=== PATIENT | male | born 1960 | race Caucasian/White ===

== ENCOUNTER 2016-05-02 11:13 | Day surgery (SDC) | payer MEDICAID ==
[~2016-05-02] VITALS: Ht 193 cm; Wt 74.4 kg
[~2016-05-02 11:13] MED LIST: BUPROPION HYDR100 M2 PO; HYDROCODONE1 TABLET PO; KEFLEX 500MG.500 MG PO; SPIRIVA HA1 PUFF/INH IH; SYMBICORT1 AER IH
[2016-05-02 11:35] VITALS: BP 169/78
--- OUTSIDE RECORDS SUMMARY | 2016-05-02 11:44 | External Medical Summary Rpt ---
Author Author , Organization [employer] Address Unknown Phone Unavailable Care Team Providers Care Senior Construction Project Manager Name Role Phone ABSNER CHANDAN, ABSRICH Unavailable Unavailable CHANDAN CONWAY, Unavailable Unavailable MIGUEL FARIAS MD, PSC, Unavailable Unavailable IVELISSE FARIAS MD, PSC BEINEKE ZHEN, BEINEKE Unavailable Unavailable ZHEN ARITA ALL, ARITA ALL Unavailable Unavailable BUX ANJ, BUX ANJ Unavailable Unavailable DUFF, DUFF Unavailable Unavailable DUFF JUAN DAVID, DUFF JUAN DAVID Unavailable Unavailable [facility] Unavailable Unavailable INC, [facility] SWEET BERTO, SWEET BERTO Unavailable Unavailable SWEET BERTO, SWEET BERTO Unavailable Unavailable [facility], Unavailable Unavailable [facility] SORIANO TRA, SORIANO TRA Unavailable Unavailable SORIANO TRA, SORIANO TRA Unavailable Unavailable [facility] Unavailable Unavailable [facility], [facility] Un[facility], [facility] Unavailable Unavailable [facility], [facility] Unavailable Unavailable [facility], [facility] DON FARIAS MD, DON Unavailable Unavailable JARRETT ROY MASKEY ALISSA, MASKEY Unavailable Unavailable ALISSA FOX, FOX Unavailable Unavailable FOX JAM, Unavailable Unavailable FOX JAM JOCELINE, JOCELINE Unavailable Unavailable [facility]EL[facility] R [facility], Unavailable Unavailable [facility] PICKLESIMER JR TYLER, Unavailable Unavailable PICKSUSANIMER TYLER PURDOM MAT, PURDOM Unavailable Unavailable MAT SCHULSTAD CAM, Unavailable Unavailable SCHULSTAD CAM KORTNEY MAT, Unavailable Unavailable KORTNEY MAT STRAIN JUAN DAVID, STRAIN Unavailable Unavailable JUAN DAVID [facility] Unavailable Unavailable HOSPITALS, [facility], Unavailable Unavailable [facility] Un[facility] ZAGUROVSKAYA MAR, Unavailable Unavailable ZAGUROVSKAYA MAR Purpose Continuity of Care Document - 07-03-2013 through 2016 Problems Code Diagnosis DOS Provider Status [id number] SPINAL 03-20-2016 [facility]IS [facility] LUMBAR INC REGION B391 CHRONIC 02-22-2016 [facility] PULMONARY [facility] HISTOPLASMO INC SIS CAPSULATI Z5181 ENCOUNTER 02-22-2016 [facility] FOR [facility] THERAPEUTIC INC DRUG LEVEL MONITORING L821 OTHER 02-18-2016 [facility] KERATOSIS [id number] SPONDYLOSIS 02-01-2016 IVELISSE FARIAS, W/O , PSC MYELOPATH/R ADICULOPATH Y LUMB RGN 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 FARIAS RAL DISC , PSC D/O W/RADICULOP ATHY LUMB RGN M5416 RADICULOPAT 02-01-2016 [facility] HY LUMBAR [facility] REGION INC B392 PULMONARY 01-24-2016 [facility] CAPSULATI UNSPECIFIED J441 CHRONIC 01-24-2016 [facility] P[facility]ARY [facility] DZ W/EXACERBAT ION R600 LOCALIZED 01-03-2016 [facility] EDEMA [facility] INC M5136 OTH 12-28-2015 [facility] INTERVERTEB [facility] RAL DISC INC DEGEN LUMBAR REGION [id number] OTHER LONG 12-17-2015 [facility] CURRENT [facility] DRUG THERAPY G894 CHRONIC 12-14-2015 [facility] SYNDROME J431 PANLOBULAR 12-14-2015 [facility]MPHYSEMA [facility] M545 LOW BACK 12-14-2015 [facility] Z720 TOBACCO USE 12-14-2015 [facility] M5406 PANNICULITI 11-30-2015 [facility] S AFFCT [facility] REGIONS NCK INC BACK LUMB REGION J189 PNEUMONIA 11-23-2015 [facility] J984 OTHER 11-23-2015 [facility] LUNG HOSPI R918 OTHER 11-23-2015 [facility] NONSPECIFIC [facility] ABNORMAL HOSPI FINDING OF LUNG FIELD Z942 LUNG 11-23-2015 [facility] TRANS[facility] STATUS [facility] R911 SOLITARY 10-21-2015 [facility] PULMONARY [facility] NODULE INC G8929 OTHER 10-06-2015 [facility] CHRON[facility] PAIN [facility] J439 EMPHYSEMA 10-06-2015 [facility] UNSPECIFIED SERV [facility] M549 DORSALGIA 10-06-2015 [facility]PEC[facility] M59054 OTHER SPEC 07-06-2015 [facility] NEOPLASM SKIN OTHER PART TRUNK D485 NEOPLASM OF 06-24-2015 [facility] UN[facility]ERTAIN PHYSICIANS BEHAVIOR OF GROUP SKIN Z7689 PERSONS 05-21-2015 [facility] ENCOUNTER [facility] navabi [facility] HOLDINGS OT CIRCUMSTANC ES I208 OTHER FORMS 03-30-2015 [facility] OF ANGINA [facility] PECTORIS INC I209 ANGINA 03-30-2015 [facility] PECTORIS PHYSICIANS UNSPECIFIED GROUP J449 CHRONIC 03-30-2015 [facility] OBSTRUCTIVE [facility] PULMONARY INC DISEASE UNS R079 CHEST PAIN 03-30-2015 [facility] UNSPECIFIED [facility] INC R9431 ABNORMAL 03-30-2015 [facility] ELECTROCARD [facility] IOGRAM INC R9439 ABNORMAL 03-30-2015 [facility] RESULT OT PHYSICIANS CARDIOVASCU GROUP LR FUNCTION STUDY R0602 SHORTNESS 03-22-2015 [facility] OF BREATH [facility] INC R0600 DYSPNEA 02-23-2015 [facility] UNSPECIFIED [facility] INC J209 ACUTE 02-20-2015 [facility]CHITIS [facility] UNSPECIFIED Z8249 FAMILY HX 02-20-2015 [facility] ISCHEMIC [facility] HRT DZ OTH DZ CIRC SYSTEM E69262G STRAIN 12-11-2014 [facility] MUSCLE [facility] FASCIA & TENDON LOW BACK INITIAL 13804 OTHER 10-29-2014 [facility] PNEUMOTHORA [facility] X [facility] 486 PNEUMONIA, 10-28-[address] [facility] UNSPECIFIED 5121 IATROGENIC 10-28-2014 [facility] X 5130 ABSCESS OF 10-28-2014 [facility] LUNG [facility] HOSPI 515 POSTINFLAMM 10-28-2014 [facility] ATORY [facility] PULMONARY HOSPI FIBROSIS 03064 OTHER 10-28-2014 [facility] DISEASES [facility] LUNG NOT HOSPI ELSEWHERE CLASSIFIED 41440 OTHER 10-28-2014 [facility] NONSPECIFIC SERV ABNORMAL [facility]OUND[facility] FINDING OF LUNG FIELD V1083 PERSONAL 10-28-2014 [facility] OTHER MALIGNANT NEOPLASM SKIN V5882 ENCOUNTER 10-28-2014 [facility]J [facility] NON-VASCULA R CATHETER NEC 496 CHRONIC 10-27-2014 [facility]AY [facility] OBSTRUCTION NEC 7226 DEGENERATIO 10-27-2014 [facility] N [facility] INTERVERTEB RAL DISC SITE UNSPEC 59369 ENTHESOPATH 10-27-2014 [facility] Y OF [facility] UNSPECIFIED SITE 7866 SWELLING, 10-27-2014 [facility] M[facility], OR [facility] LUMP IN CHEST 4928 OTHER 09-25-2014 [facility] EMPHYSEMA [facility] 18995 LOSS OF 09-25-2014 [facility] 98190 SOLITARY 09-25-2014 [facility] P[facility]MON[facility] NODULE [facility] 25120 OBSTRUCTIVE 09-14-2014 [facility] CHRONIC [facility] BRONCHITIS INC WITHOUT EXACERBAT 92247 SHORTNESS 08-31-2014 [facility] 7932 NONSPC ABN 08-31-2014 [facility] FINDNG [facility] RAD&OTH INC EXAM OTH INTRTHOR ORGN 7208 SACROILIITI 06-01-2014 DON FARIAS S NOT MD ELSEWHERE CLASSIFIED 79767 DEGEN 06-01-2014 DON FARIAS LUMBAR/LUMB OSACRAL INTERVERTEB RAL DISC 7244 THORACIC/FAVIOLA 06-01-2014 DON JONESOSACRKATE ROY NEURITIS/RA DICULITIS UNSPEC 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 5- 32 5 SY 00 02 03 10 30 00 RI Ac MB 18 -0 -0 .1 00 TE ti IC 60 3- 3- 99 01 ve OR 37 20 20 15 AI T 02 17 17 18 D 16 0 08 PH 0- AR 4. M 5 #3 MC 93 G 8 IN PATEL LE R SP 00 02 03 30 30 00 RI Ac IR 59 -0 -0 .0 00 TE ti IV 70 3- 3- 00 01 ve A 07 20 20 13 AI 18 54 17 17 92 D 1 44 PH MC AR G M CP #3 -H 93 AN 8 DI PATEL LE R IT 00 02 02 60 30 00 RI Ac RA 37 -0 -2 .0 00 TE ti CO 85 1- 4- 00 01 ve NA 10 20 20 16 AI ZO 09 17 17 93 D LE 3 28 PH AR 10 M 0 #3 MG 93 8 CA PS UL E BU 00 02 02 60 30 00 RI Ac FL 18 -0 -2 .0 00 TE ti OP 50 1- 4- 00 01 ve IO 41 20 20 16 AI N 56 17 17 93 D HC 0 29 PH L AR SR M #3 15 93 0 8 MG TA BL ET SY 00 01 02 10 30 00 RI Ac MB 18 -0 -1 .1 00 TE ti IC 60 2- 7- 99 01 ve OR 37 20 20 15 AI T 02 17 17 18 D 16 0 08 PH 0- AR 4. M 5 #3 MC 93 G 8 IN PATEL LE R IT 00 01 01 60 30 00 RI Ac RA 37 -0 -2 .0 00 TE ti CO 85 2- 7- 00 01 ve NA 10 20 20 16 AI ZO 09 17 17 51 D LE 3 50 PH AR 10 M 0 #3 MG 93 8 CA PS UL E SP 00 01 01 30 30 00 RI Ac IR 59 -0 -2 .0 00 TE ti IV 70 2- 7- 00 01 ve A 07 20 20 13 AI 18 54 17 17 92 D 1 44 PH MC AR G M CP #3 -H 93 AN 8 DI PATEL LE R HY 00 01 01 [address] 40 -0 -2 .0 00 TE ti OC 60 2- 7- 00 01 ve OD 12 20 20 16 AI ON 40 17 17 49 D -A 1 21 PH CE AR TA M VT #3 NO 93 PH 8 7. 5- 32 5 ME 00 12 01 21 6 00 RI Ac TH 78 -1 -1 .0 00 TE ti YL 15 2- 3- 00 01 ve FL 02 20 20 16 AI ED 20 16 17 21 D NI 7 21 PH SO AR LO M NE #3 4 93 8 MG DO SE PK VE 00 12 01 18 25 00 RI Ac NT 17 -0 -0 .0 00 TE ti OL 30 1- 9- 00 01 ve IN 68 20 20 16 AI 22 16 17 05 D HF 0 13 PH A AR 90 M #3 MC 93 G 8 IN PATEL LE R HY 00 12 01 [address] 40 -0 -0 .0 00 TE ti OC 60 2- 9- 00 01 ve OD 12 20 20 16 AI ON 40 16 17 08 D -A 1 08 PH CE AR TA M VT #3 NO 93 PH 8 7. 5- 32 5 IP 00 12 01 18 14 00 RI Ac RA 48 -0 -0 0. 00 TE ti T- 70 2- 9- 00 01 ve AL 20 20 20 0 11 AI BU 10 16 17 44 D T 3 51 PH 0. AR 5- M 3( #3 2. 93 5) 8 MG /3 ML SP 00 12 01 30 30 00 RI Ac IR 59 -0 -0 .0 00 TE ti IV 70 2 01 ve A 07 20 20 13 AI 18 54 16 17 92 D 1 44 PH MC AR G M CP #3 -H 93 AN 8 DI PATEL LE R SY 00 12 01 10 30 00 RI Ac MB 18 -0 -0 .1 00 TE ti IC 60 01 ve OR 37 20 20 15 AI T 02 16 17 18 D 16 0 08 PH 0- AR 4. M 5 #3 MC 93 G 8 IN PATEL LE R Procedures Procedure DOS Code Location Performer Comment COMPREHEN 71077 [facility] SIVE [facility] METABOLIC INC INC PANEL COLLECTIO 11512 [facility] N VENOUS 7 [facility] BLOOD INC INC VENIPUNCT URE [facility] 71193 FAMILY JOCELINE LESION 1 7 CARE TRUNK/ARM ASSOCIATE /LEG DIAM S 1.1-2.0 CM NJX 22490 [facility] DX/THER 6 [facility] AGT PVRT INC INC FACET JT LMBR/SAC 2ND LEVEL NJX 17474 [facility] DX/THER 6 [facility] AGT PVRT INC INC FACET JT LMBR/SAC 1 LEVEL NJX 26132 [facility] DX/THER 6 [facility] AGT PVRT INC INC FACET JT LMBR/SAC 3+ LEVEL COMPREHEN 24628 [facility] SIVE 6 [facility] METABOLIC INC INC PANEL COLLECTIO 13628 [facility] N VENOUS 6 [facility] BLOOD INC INC VENIPUNCT URE BLOOD 79677 [facility] COUNT 6 [facility] COMPLETE INC INC AUTO&AUTO DIFRNTL WBC BLOOD 22228 [facility] VALENTEON COUNT 6 [facility] COMPLETE INC INC AUTO&AUTO DIFRNTL WBC COMPREHEN 37733 [facility] SIVE 6 [facility] METABOLIC INC INC PANEL COLLECTIO 36249 [facility] N VENOUS 6 [facility] BLOOD INC INC VENIPUNCT URE NJX 36737 [facility] DX/THER 6 [facility] AGT PVRT INC INC FACET JT LMBR/SAC 3+ LEVEL NJX 87863 [facility] DX/THER 6 [facility] AGT PVRT INC INC FACET JT LMBR/SAC 2ND LEVEL NJX 65299 [facility] VALENTEON DX/THER 6 [facility] AGT PVRT INC INC FACET JT LMBR/SAC 1 LEVEL BRONCHOSC 83215 RHIANNA MASKEY OPY 6 MEDICAL ALISSA W/TRANSBR SERV ONCHIAL FOUNDATIO LUNG BX 1 N LOBE INJECTION J3010 [facility] FENTANYL 6 HEALTHCAR HEALTHCAR CITRATE E E 0.1 MG [facility] INFUSION J7030 [facility] NORMAL 6 [facility]ALTHCAR HEALTHCAR SALINE E E SOLUTION [facility] 1000 CC CUL BACT 54203 [place] AEROBIC 6 [facility]ALTHCAR HEALTHCAR ADDL E E METHS [facility] [place] [address] [facility] SLIDE 6 HEALTHCAR HEALTHCAR SAMPS E E SKN/HR/NL [facility] S FNGI/ECTO PARASIT SMR PRIM 88001 [facility] SRC 6 HEALTH[facility] HEALTHCAR FLUORESCE E E NT&/AFS [facility] BCT FNGI PARASIT CUL BACT 98279 [facility] XCPT 6 HEALTHCAR HEALTHCAR URINE E E BLOOD/STO [facility] OL AEROBIC ISOL CULTURE 59985 [facility] TUBERCLE/ 6 HEALTHCAR HEALTHCAR OTH E E ACID-FAST [facility] BACILLI ANY ISOL INJECTION J2250 [facility] 6 HEALTHCAR HEALTHCAR MIDAZOLAM E E HCL PER [facility] 1 MG HOMOGENIZ 72931 [facility] ATION 6 HEALTHCAR HEALTHCAR TISSUE E E CULTURE [facility] CULTURE 12746 [facility] FUNGI 6 HEALTHCAR HEALTHCAR DEFINITIV E E E ID EACH [facility] ORGANISM YEAST CONCENTRA 37504 [facility] TION 6 HEALTHCAR HEALTHCAR INFECTIOU E E S AGENTS [facility] SPECIAL 77203 [facility] PURDOM STAIN 6 Y OF MAT GROUP 1 [facility] NISMS I&R CYTP 91159 [facility] ABSNER SLCTV 6 Y OF CHANDAN CELL [facility] NT INTERP[place] XCP[place] C/[place] [address] [facility] PURDOM SURG 6 Y OF MAT PATHOLOGY [facility] GROSS&LESLIE ROSCOPIC EXAM SUSCEPTIB 82292 [facility] ILITY 6 HEALTHCAR HEALTHCAR STUDY E E ANTIMICRO [facility] BIAL ENZYME DETCJ IADNA NOS 27474 [facility] DIRECT 6 HEALTHCAR HEALTHCAR PROBE TQ E E EACH [facility] ORGANISM SUSCEPTBI 57669 [facility] LTY STDY 6 HEALTHCAR HEALTHCAR ANTIMICRB E E IAL AGNT [facility] AGAR DILUTJ CULTURE 02746 [facility] FNGI 6 HEALTHCAR HEALTHCAR MOLD/YEAS E E T PRSMPTV [facility] OTH XCPT BLOOD [facility] [address] [place] W/BRNCL 6 MEDICAL MEDICAL ALVEOLAR SERV SERV LAVAGE FOUNDATIO FOUNDATIO N N APPL 46342 [facility] MODALITY 6 [facility] 1/> AREAS INC INC ELEC STIMJ UNATTENDE D APPLICATI 80785 [facility] ON 6 [facility]OS[facility] MODALITY INC INC 1/> AREAS HOT/COLD PACKS APPL 11544 [facility] MODALITY 6 [facility] 1/> AREAS INC INC ULTRASOUN D EA [address] THORAX 46168 [facility]ITA ALL W/O 6 MEDICAL CONTRAST IMAGING MATERIAL ASS APPL 44112 [facility] MODALITY 6 [facility] 1/> AREAS INC INC ULTRASOUN D EA 15 MIN APPLICATI 96537 [facility] ON 6 [facility]OS[facility] MODALITY INC INC 1/> AREAS HOT/COLD PACKS APPL 82314 [facility] MODALITY 6 [facility] 1/> AREAS INC INC ELEC STIMJ UNATTENDE D APPL 47108 [facility] MODALITY 6 MEM H[facility]OSP 1/> AREAS INC INC ELEC STIMJ UNATTENDE D APPLICATI 92688 [facility] ON 6 [facility]OS[facility] MODALITY INC INC 1/> AREAS HOT/COLD PACKS APPL 70506 [facility] MODALITY 6 [facility] 1/> AREAS INC INC ULTRASOUN D EA 15 MIN APPLICATI 11260 [facility] ON 6 [facility]OS[facility] MODALITY INC INC 1/> AREAS HOT/COLD PACKS APPL 19849 [facility] MODALITY 6 [facility] 1/> AREAS INC INC ELEC STIMJ UNATTENDE D THERAPEUT 94712 [facility] IC PX 1/> 6 [facility]OS[facility] AREAS INC INC EACH 15 MIN EXERCISES APPL 58050 [facility] MODALITY 6 [facility] 1/> AREAS INC INC ULTRASOUN D EA 15 MIN APPL 46506 [facility] MODALITY 6 [facility] 1/> AREAS INC INC ULTRASOUN D EA 15 MIN APPL 04707 [facility] MODALITY 6 [facility]OS[facility] 1/> AREAS INC INC ELEC STIMJ UNATTENDE D APPLICATI 39178 [facility] ON 6 [facility]OS[facility] MODALITY INC INC 1/> AREAS HOT/COLD PACKS APPLICATI 15910 [facility] ON 6 [facility]OS[facility] MODALITY INC INC 1/> AREAS HOT/COLD PACKS APPL 81539 [facility] MODALITY 6 [facility] 1/> AREAS INC INC ELEC STIMJ UNATTENDE D APPL 75340 [facility] MODALITY 6 [facility] 1/> AREAS INC INC ULTRASOUN D EA 15 MIN APPL 70929 [facility] MODALITY 6 [facility] 1/> AREAS INC INC ULTRASOUN D EA 15 MIN APPL 97351 [facility] MODALITY 6 [facility] 1/> AREAS INC INC ELEC STIMJ UNATTENDE D APPLICATI 73686 [facility] ON 6 [facility] MODALITY INC INC 1/> AREAS HOT/COLD PACKS APPLICATI 89147 [facility] ON 6 [facility]OS[facility] MODALITY INC INC 1/> AREAS HOT/COLD PACKS APPL 36469 [facility] MODALITY 6 [facility] 1/> AREAS INC INC ELEC STIMJ UNATTENDE D APPL 44392 [facility] MODALITY 6 [facility] 1/> AREAS INC INC ULTRASOUN D EA 15 MIN THERAPEUT 79133 [facility] IC PX 1/> 6 [facility] AREAS INC INC EACH 15 MIN EXERCISES PHYSICAL 27752 [facility] THERAPY 6 [facility] [place] [address] [facility], PICKLESIM SURG 6 [facility] PATHOLOGY GROSS&LESLIE ROSCOPIC EXAM CREATININ 66570 LAB [facility] LAB RASHIDA E OTHER 6 [facility] HOLDINGS HOLDINGS DRUG TST G0483 LAB [facility] DEFINITV [address] ID HOLDINGS HOLDINGS METH P DAY 22/MORE DR CL CATHETER C1887 [facility] GUIDING 6 [facility] INC INC INJECTION J1644 [facility] HEPARIN 6 [facility] SODIUM INC INC PER 1000 UNITS CATH PLMT 62860 [facility] KORTNEY L HRT & 6 PHYSICIAN MAT ARTS S GROUP W/NJX & ANGIO IMG S&I LOCM Q9967 [facility] 300-399 6 [facility] MG/ML INC INC IODINE CONCENTRA TION PER ML GUIDE C1769 [facility] WIRE 6 [facility] INC INC CATHETER C1725 [facility] TRANSLUMI 6 [facility] NAL INC INC ANGIOPLAS TY NON-LASER UNCLASSIF J3490 [facility] IED DRUGS 6 [facility] H[facility] INC INC NON-INVAS 88001 [facility] ALL FARIDA 6 MEDICAL PHYSIOLOG IMAGING IC STUDY ASS EXTREMITY 3 LEVLS TECHNETIU A9500 [facility] Kothari TC-99M 6 [facility] H[facility] SESTAMIBI INC INC DX PER STUDY DOSE CV STRS 00804 [facility] TST 6 [facility] XERS&/OR INC INC RX CONT ECG TRCG ONLY INJECTION J2785 [facility] 6 [facility]OS[facility] REGADENOS INC INC ON 0.1 MG MYOCARDIA 94424 [facility] L SPECT 6 [facility] MULTIPLE INC INC STUDIES ECHO 38771 RHIANNA RIVERA TRANSTHOR 6 MEDICAL MARTINEZ MAN C R-T 2D SERV W/WO FOUNDATIO M-MODE N REC F-UP/LMTD ECHO 68323 [facility] TTHRC R-T 6 [facility]OS[facility] 2D INC INC W/WOM-MOD E COMPL SPEC&COLR D ECG 45460 [facility] ROUTINE 6 [facility] ECG INC INC W/LEAST 12 LDS TRCG ONLY W/O I&R ECG 44633 CARDIOVAS KORTNEY ROUTINE 6 CULAR MAT ECG CONSULTAN W/LEAST TS O 12 LDS I&R ONLY BLOOD 01041 FAMILY FAMILY COUNT 6 CARE CARE COMPLETE ASSOCIATE ASSOCIATE AUTO&AUTO S S DIFRNTL WBC CT THORAX 80332 [facility] W/O 5 [facility] CONTRAST INC INC MATERIAL COLLECTIO 01315 [facility] N VENOUS 5 [facility] BLOOD INC INC VENIPUNCT URE RADIOLOGI 29070 [facility] C 5 [facility] ON CHEST SING[place] FRONTAL RADIOLOGI 52431 RHIANNA SHAW C 5 MEDICAL AYA MAR EXAMINATI SERV ON CHEST FOUNDATIO SINGLE N VIEW FRONTAL INJECTION J1170 [facility] UNIVERS 5 Y Y HYDROMORP [facility] YANCI UP TO 4 MG CULTURE 16955 [facility] FNGI 5 Y Y MOLD/YEAS [facility] T PRSMPTV OTH XCPT BLOOD PROTHROMB 46704 [facility] UNIVERS IN TIME 5 Y Y HOSPITAL HOSPITAL INFUSION J7030 [facility] NORMAL 5 Y Y SALINE [facility] SOLUTION 1000 CC INJECTION J3010 [facility] FENTANYL 5 Y Y CITRATE [facility] 0.1 MG TISS SAM 17791 [facility] SLIDE 5 Y Y [facility] SKN/HR/NL S FNGI/ECTO PARASIT SMR PRIM 73875 [facility] SRC 5 Y Y [facility]OSPITAL NT&/AFS BCT FNGI PARASIT CUL BACT 25295 [facility] XCPT 5 Y Y URINE HOSPITAL HOSPITAL BLOOD/STO OL AEROBIC ISOL CULTURE 92336 [facility] BACTERIAL 5 Y Y ANY HOSPITAL HOSPITAL SOURCE ANAEROBIC ISO&ID CULTURE 58943 [facility] TUBERCLE/ 5 Y Y OTH HOSPITAL HOSPITAL ACID-FAST BACILLI ANY ISOL THROMBOPL 20725 [facility] ASTIN 5 Y Y TIME HOSPITAL HOSPITAL PARTIAL PLASMA/WH OLE BLOOD BASIC 01756 [facility] METABOLIC 5 Y Y PANEL HOSPITAL HOSPITAL CALCIUM TOTAL GUIDE C1769 [facility] WIRE 5 Y Y HOSPITAL HOSPITAL INJECTION J2250 [facility] 5 Y Y [facility] HCL PER 1 MG BIOPSY 18504 [facility] LUNG/MEDI 5 Y Y ASTINUM [facility] PERCUTANE OUS NEEDLE HOMOGENIZ 69285 [facility] ATION 5 Y Y TISSUE HOSPITAL HOSPITAL CULTURE SMR PRIM 89216 [facility] SRC 5 Y Y GRAM/GIEM HOSPITAL HOSPITAL SA STAIN BCT FUNGI/JEFF L BLOOD 05255 [facility] COUNT 5 Y Y COMPLETE HOSPITAL HOSPITAL AUTOMATED CATHETER C1729 [facility] DRAINAGE 5 Y Y HOSPITAL HOSPITAL RADIOLOGI 93947 [place] AMEROVIVIK C 5 MEDICAL AYA MAR EXAMINATI SERV ON [place] [address] [facility] GUIDANCE 5 Y Y NEEDLE HOSPITAL HOSPITAL PLACEMENT SPCL STN 46504 [facility] 2 I&R 5 Y Y EXCPT [facility] MICROORG/ ENZYME/IM CYT SPECIAL 56616 [facility] STAIN 5 Y Y GROUP 1 HOSPITAL HOSPITAL MICROORGA NISMS I&R PATH 84569 [facility] [place] 5 Y Y SURG [facility]OSPITAL [facility] CYTOLOGIC EXAM INITIAL SITE PATH 82364 [facility] [place] 5 Y Y SURG [facility] CYTOLOGIC EXAM ADDL SITE PERQ 45165 [place] STRAIN DRAINAGE 5 MEDICAL JUAN [facility] SERV INSERT FOUNDATIO CATH N [place] [address] [facility] SURG 5 Y Y PATHOLOGY [facility] GROSS&LESLIE ROSCOPIC EXAM IMHISTOCH 16915 [facility] EM/CYTCHM [address] [place] [address] [place]ED[place] [address] [facility] IMAGING 5 Y Y [facility] ATTENUATI ON SKULL BASE MID-THIGH FLUORODEO A9552 [facility] XYGLUCOSE 5 Y Y F-18 FDG [facility] DX UP [place] [address] [place] [address] [facility] THYROID 5 [facility] STIMULATI INC INC NG HORMONE TSH COMPREHEN 67816 [facility] SIVE 5 [facility] METABOLIC INC INC PANEL COLLECTIO 87645 [facility] N VENOUS 5 [facility] BLOOD INC INC VENIPUNCT URE BRNCDILAT 96217 [facility] RSPSE 5 [facility] SPMTRY INC INC PRE&POST- BRNCDILAT ADMN BLOOD 41120 [facility] COUNT 5 [facility] COMPLETE INC INC AUTO&AUTO DIFRNTL WBC ALPHA-1-A 57274 [facility] NTITRYPSI 5 [facility] N INC INC PHENOTYPE NONINVASI 87315 [facility] VE 5 [facility] EAR/PULSE INC [place] [address] [facility] DIFFUSING 5 [facility] CAPACITY INC INC GAS 92033 [facility] DILUT/WAS 5 [facility] HOUT LUNG INC INC VOL W/WO DISTRIB VENT&V LOCM Q9967 [facility] [phone] [facility] MG/ML INC INC IODINE CONCENTRA TION PER ML CT THORAX 15014 [facility] BEINEKE 5 MEDICAL ZHEN W/CONTRAS IMAGING T ASS MATERIAL CREATININ 10386 [facility] E BLOOD 5 [place] [address] [facility] UREA 5 [facility] NITROGEN INC INC QUANTITAT FARIDA COLLECTIO 72875 [facility] N VENOUS 5 [facility] BLOOD INC INC VENIPUNCT URE [facility] 16429 [place] ARITA ALL C EXAM 5 MEDICAL CHEST 2 IMAGING VIEWS [place] FR[place] [address] MADAR BUX BUX ANJ JOINT 5 ARTHRGRPH Y&/ANES/S TEROID W/ANUJ OPH 79463 [facility]A [facility] 4 XM&EVAL COMPRE NEW PT 1/> VST Encounters Encounter Start End Date Code Location Performer Type Date [facility] 7 [facility] T OFFICE [id number] [facility] OUTPAT[facility]AIR 7 7 [facility] T [facility]ISIT INC 10 MINUTES [facility] - 7 7 [facility] OUTPATIEN INC [facility] - 6 6 [facility] T OFFICE 77860 [facility] OUTPATIEN 6 6 [facility] T VISIT INC 10 MINUTES OFFICE 07858 IVELISSE AMADO OUTPATIEN 6 6 MD JARRETT, T VISIT PSC 15 MINUTES OFFICE 02943 RHIANNA LEBLANCPATIJAIR 6 6 MEDICAL T VISIT SERV 25 FOUNDATIO MINUTES [facility] - 6 6 [facility] - 6 6 [facility] - 6 6 [facility]IEN INC T OFFICE 67013 IVELISSE AMADO OUTPATIEN 6 6 MD JARRETT, T VISIT PSC 15 MINUTES OFFICE 62612 [facility] GAN 6 6 [facility] INC 10 MINUTES OFFICE 68985 RHIANNA GAN 6 6 MEDICAL JAM T VISIT SERV 25 FOUNDATIO MINUTES [facility] - 6 6 [facility] INC T OFFICE 57945 FAMILY JOCELINE OUTPATIEN 6 6 CARE R H T VISIT ASSOCIATE 15 S MINUTES [facility] - 6 6 [facility] OFFICE 12758 IVELISSE AMADO [facility]UAN [facility]ID OUTPATIEN 6 6 MD JARRETT, T VISIT [facility] 15 MINUTES OFFICE 29747 [facility] OUTPATIEN 6 6 [facility] T VISIT INC 10 MINUTES [facility] - 6 6 [facility] - 6 6 [facility] INC T OFFICE 40691 FAMILY JOCELINE OUTPATIEN 6 6 CARE R H T VISIT ASSOCIATE 15 S MINUTES [facility] - 6 6 [facility] INC T OFFICE 28373 [facility] OUTPATIEN 6 6 MEDICAL JAM T VISIT SERV 15 FOUNDATIO MINUTES [facility] - 6 6 [facility] INC T OFFICE 80918 IVELISSE VELASQUEZ OUTPATIEN 6 6 MD JARRETT, T VISIT PSC 10 MINUTES [facility] - 6 6 [facility] T OFFICE 54933 FAMILY JOCELINE OUTPATIEN 6 6 CARE R H T VISIT ASSOCIATE 15 S MINUTES OFFICE 75649 [facility] NARENDRA OUTPATIEN 6 6 PHYSICIAN CAM T VISIT S GROUP 15 MINUTES OFFICE 75556 FAMILY JOCELINE OUTPATIEN 6 6 CARE R H T VISIT ASSOCIATE 25 S MINUTES OFFICE 36913 FAMILY JOCELINE OUTPATIEN 6 6 CARE R H T VISIT ASSOCIATE 15 S MINUTES OFFICE 24818 FAMILY JOCELINE OUTPATIEN 6 6 CARE R H T VISIT ASSOCIATE 15 S [facility] - 6 6 [facility]PATIEN INC T OFFICE 89631 FAMILY JOCELINE OUTPATIEN 6 6 CARE R H T VISIT ASSOCIATE 15 S [facility] - 6 6 [facility] - 6 6 [facility] T OFF[facility] 62047 CARDIOVAS KORTNEY OUTPATIEN 6 6 [facility] 60 CONSULTAN MINUTES [facility] - 6 6 [facility] T OFFICE 84614 FAMILY JOCELINE OUTPATIEN 6 6 CARE R H T VISIT ASSOCIATE 15 S [facility] - 5 5 [facility] T OFFICE 55186 FAMILY JOCELINE OUTPATIEN 5 5 CARE R H T VISIT ASSOCIATE 15 S [facility] EWDARDO - 5 5 [facility] UN[facility] - 5 5 Y [facility] T OFFICE 45726 FAMILY JOCELINE OUTPATIEN 5 5 CARE R H T VISIT ASSOCIATE 15 S [facility]IV[facility] - 5 5 Y [facility] - 5 5 [facility] - 5 5 [facility] - 5 5 [facility] - 5 5 [facility] - 5 5 [facility] INC T OFFICE 78962 [facility] OUTPATIEN 5 5 [facility] T VISIT INC 10 MINUTES OFFICE 54621 [facility] OUTPATIEN 5 5 [facility] T VISIT INC 10 MINUTES [facility] - 5 5 [facility] INC T OFFICE 75525 DON FARIAS ANYanni OUTPATIEN 5 5 T NEW 30 MINUTES OFFICE 78238 CHRISTIE LOZANO OUTPATIEN 4 4 T NEW 45 MINUTES
--- OUTSIDE RECORDS SUMMARY | 2016-05-02 11:44 | External Medical Summary Rpt ---
Author Author , Organization [employer] Address Unknown Phone Unavailable Care Team Providers Care Reception Name Role Phone ABSNER CHANDAN, ABSRICH Unavailable Unavailable CHANDAN CONWAY, Unavailable Unavailable MIGUEL FARIAS MD, PSC, Unavailable Unavailable IVELISSE FARIAS MD, PSC BEINEKE ZHEN, BEINEKE Unavailable Unavailable ZHEN ARITA ALL, ARITA ALL Unavailable Unavailable BUX ANJ, BUX ANJ Unavailable Unavailable DUFF, DUFF Unavailable Unavailable DUFF JUAN DAVID, DUFF JUAN DAVID Unavailable Unavailable [facility] Unavailable Unavailable INC, [facility] SWEET BERTO, SWEET BERTO Unavailable Unavailable SWEET BERTO, SWEET BERTO Unavailable Unavailable [facility], Unavailable Unavailable [facility] SORIANO TRA, SORIANO TRA Unavailable Unavailable SORIANO TRA, SORIANO TRA Unavailable Unavailable [facility] Unavailable Unavailable [facility], [facility] Unavailable [facility], [facility]available Unavailable [facility], [facility] Unavailable Unavailable [facility], [facility] DON FARIAS MD, DON Unavailable Unavailable JARRETT ROY MASKEY ALISSA, MASKEY Unavailable Unavailable ALISSA FOX, FOX Unavailable Unavailable FOX JAM, Unavailable Unavailable OFX JAM JOCELINE, JOCELINE Unavailable Unavailable JOCELINE R H, Unavailable Unavailable [facility] PICKLESIMER JR TYLER, Unavailable Unavailable PICKSUSANIMER TYLER PURDOM MAT, PURDOM Unavailable Unavailable MAT SCHULSTAD CAM, Unavailable Unavailable SCHULSTAD CAM KORTNEY MAT, Unavailable Unavailable KORTNEY MAT STRAIN JUAN DAVID, STRAIN Unavailable Unavailable JUAN DAVID [facility] Unavailable Unavailable [facility], [facility], Unavailable Unavailable [facility] Unavailable [facility] ZAGUROVSKAYA MAR, Unavailable Unavailable ZAGUROVSKAYA MAR Purpose Continuity of Care Document - 07-03-2013 through 2016 Problems Code Diagnosis DOS Provider Status [id number] SPINAL 03-20-2016 [facility]EN[facility]IS [facility] LUMBAR INC REGION B391 CHRONIC 02-22-2016 [facility] PULMONARY [facility] HISTOPLASMO INC SIS CAPSULATI Z5181 ENCOUNTER 02-22-2016 [facility] FOR [facility] THERAPEUTIC INC DRUG LEVEL MONITORING L821 OTHER 02-18-2016 [facility] KERATOSIS [id number] SPONDYLOSIS 02-01-2016 IVELISSE FARIAS, W/O , PSC MYELOPATH/R ADICULOPATH Y LUMB RGN 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 FARIAS RAL DISC , PSC D/O W/RADICULOP ATHY LUMB RGN M5416 RADICULOPAT 02-01-2016 [facility] HY LUMBAR [facility] REGION INC B392 PULMONARY 01-24-2016 IN MEDICAL HISTOPLASMO SERV SIS FOUNDATION CAPSULATI UNSPECIFIED J441 CHRONIC 01-24-2016 IN MEDICAL OBSTRUCTIVE SERV PULMONARY FOUNDATION DZ W/EXACERBAT ION R600 LOCALIZED 01-03-2016 [facility] EDEMA [facility] INC M5136 OTH 12-28-2015 [facility] INTERVERTEB [facility] RAL DISC INC DEGEN LUMBAR REGION H83363 OTHER LONG 12-17-2015 IN MEDICAL TERM SERV CURRENT FOUNDATION DRUG THERAPY G894 CHRONIC 12-14-2015 [facility] SYNDROME J431 PANLOBULAR 12-14-2015 [facility]MPHYSEMA [facility] M545 LOW BACK 12-14-2015 [facility] Z720 TOBACCO USE 12-14-2015 [facility] M5406 PANNICULITI 11-30-2015 [facility] S AFFCT [facility] REGIONS NCK INC BACK LUMB REGION J189 PNEUMONIA 11-23-2015 [place] [facility] J984 OTHER 11-23-2015 [facility] HOS[facility] R918 OTHER 11-23-2015 [place] NONSPECIFIC [facility] ABNORMAL HOSPI FINDING OF L[place] FIELD Z942 LUNG 11-23-2015 IN MEDICAL TRANSPLANT SERV STATUS FOUNDATION R911 SOLITARY 10-21-2015 [facility] PULMONARY [facility] NODULE INC G8929 OTHER 10-06-2015 IN MEDICAL CHRONIC SERV PAIN FOUNDATION J439 EMPHYSEMA 10-06-2015 IN MEDICAL UNSPECIFIED SERV FOUNDATION M549 DORSALGIA 10-06-2015 IN MEDICAL UNSPECIFIED SERV FOUNDATION F20669 OTHER SPEC 07-06-2015 [facility] NEOPLASM SKIN OTHER PART TRUNK D485 NEOPLASM OF 06-24-2015 [facility] UNCERTAIN PHYSICIANS BEHAVIOR OF GROUP SKIN Z7689 PERSONS 05-21-2015 [facility] ENCOUNTER [facility] [place] [facility]INGS OT CIRCUMSTANC ES I208 OTHER FORMS 03-30-2015 [facility] OF ANGINA [facility] PECTORIS INC I209 ANGINA 03-30-2015 [facility] PECTORIS PHYSICIANS UNSPECIFIED GROUP J449 CHRONIC 03-30-2015 [facility] OBSTRUCTIVE [facility] PULMONARY INC DISEASE UNS R079 CHEST PAIN 03-30-2015 [facility] UNSPECIFIED [facility] INC R9431 ABNORMAL 03-30-2015 [facility] ELECTROCARD [facility] IOGRAM INC R9439 ABNORMAL 03-30-2015 [facility] RESULT OT PHYSICIANS CARDIOVASCU GROUP LR FUNCTION STUDY R0602 SHORTNESS 03-22-2015 [facility] OF BREATH [facility] INC R0600 DYSPNEA 02-23-2015 [facility] UNSPECIFIED [facility] INC J209 ACUTE 02-20-2015 [facility]IS [facility] UNSPECIFIED Z8249 FAMILY HX 02-20-2015 [facility] ISCHEMIC [facility] HRT DZ OTH DZ CIRC SYSTEM T88600H STRAIN 12-11-2014 [facility] MUSCLE [facility] FASCIA & TENDON LOW BACK INITIAL 32760 OTHER 10-29-2014 IN MEDICAL PNEUMOTHORA SERV X FOUNDATION 486 PNEUMONIA, 10-28-2014 [facility] DORAL UNSPECIFIED 5121 IATROGENIC 10-28-2014 [facility] X 5130 ABSCESS OF 10-28-2014 [place] LUNG [facility] HOSPI 515 POSTINFLAMM 10-28-2014 [place] ATORY [facility] PULMONARY HOSPI FIBROSIS 55412 OTHER 10-28-2014 [place] DISEASES [facility] LUNG NOT HOSPI ELSEWHERE CLASSIFIED 60568 OTHER 10-28-2014 IN MEDICAL NONSPECIFIC SERV ABNORMAL FOUNDATION FINDING OF [place] FIELD V1083 PERSONAL 10-28-2014 [facility] OTHER MALIGNANT NEOPLASM SKIN V5882 ENCOUNTER 10-28-2014 IN MEDICAL FITTING&ADJ SERV FOUNDATION NON-VASCULA R CATHETER NEC 496 CHRONIC 10-27-2014 [facility]WAY [facility] OBSTRUCTION NEC 7226 DEGENERATIO 10-27-2014 [facility] N [facility] INTERVERTEB RAL DISC SITE UNSPEC 26841 ENTHESOPATH 10-27-2014 [facility] Y OF [facility] UNSPECIFIED SITE 7866 SWELLING, 10-27-2014 [facility] MASS, OR [facility] LUMP IN CHEST 4928 OTHER 09-25-2014 [place] EMPHYSEMA [facility] 76933 LOSS OF 09-25-2014 [facility] 22112 SOLITARY 09-25-2014 IN MEDICAL PULMONARY SERV NODULE FOUNDATION 64569 OBSTRUCTIVE 09-14-2014 [facility] CHRONIC [facility] BRONCHITIS INC WITHOUT EXACERBAT 85711 SHORTNESS 08-31-2014 [place] [facility] MEDICAL IM[facility] 7932 NONSPC ABN 08-31-2014 [facility] FINDNG [facility] RAD&OTH INC EXAM OTH INTRTHOR ORGN 7207 SACROILIITI 06-01-2014 DON FARIAS S NOT MD ELSEWHERE CLASSIFIED 03505 DEGEN 06-01-2014 DON FARIAS LUMBAR/LUMB OSACRAL INTERVERTEB RAL DISC 7244 THORACIC/FAVIOLA 06-01-2014 DON JONESOSACRKATE ROY NEURITIS/RA DICULITIS UNSPEC 32615 DISPLCMT 04-13-2014 DON FARIAS LUMBAR INTERVERT DISC [...] 1 59 PH CE AR TA M MD #3 NO 93 PH 8 7. 5- [...] 02 02 60 30 00 RI Ac CO 18 -0 -2 .0 00 TE ti [...] 1 21 PH CE AR TA M MD #3 NO 93 PH 8 7. 5- 32 5 ME 00 12 01 21 6 00 RI Ac TH 78 -1 -1 .0 00 TE ti YL 15 2- 3- 00 01 ve CO 02 20 20 16 AI ED 20 [...] 1 08 PH CE AR TA M MD #3 NO 93 PH 8 7. 5- [...] Procedure DOS Code Location Performer Comment COMPREHEN 95901 [facility] SIVE 7 [facility] METABOLIC INC INC PANEL COLLECTIO 00428 [facility] N VENOUS 7 [facility] BLOOD INC INC VENIPUNCT URE [facility] 60853 FAMILY JOCELINE LESION 1 7 CARE TRUNK/ARM ASSOCIATE /LEG DIAM S 1.1-2.0 CM NJX 31957 [facility] DX/THER 6 [facility] AGT PVRT INC INC FACET JT LMBR/SAC 2ND LEVEL NJX 31746 [facility] DX/THER 6 [facility]OSP AGT PVRT INC INC FACET JT LMBR/SAC 1 LEVEL NJX 00738 [facility] DX/THER 6 [facility] AGT PVRT INC INC FACET JT LMBR/SAC 3+ LEVEL COMPREHEN 50166 [facility] SIVE 6 [facility] METABOLIC INC INC PANEL COLLECTIO 60094 [facility] N VENOUS 6 [facility]OS[facility] BLOOD INC INC VENIPUNCT URE BLOOD 38818 [facility] COUNT 6 [facility]OS[facility] COMPLETE INC INC AUTO&AUTO DIFRNTL WBC BLOOD 27491 [facility] VALENTEON COUNT 6 [facility]OS[facility] COMPLETE INC INC AUTO&AUTO DIFRNTL WBC COMPREHEN 56521 [facility] SIVE 6 [facility]OS[facility] METABOLIC INC INC PANEL COLLECTIO 88637 [facility] N VENOUS 6 [facility]OS[facility] BLOOD INC INC VENIPUNCT URE NJX 11762 [facility] DX/THER 6 [facility]OS[facility] AGT PVRT INC INC FACET JT LMBR/SAC 3+ LEVEL NJX 29275 [facility] DX/THER 6 [facility]OS[facility] AGT PVRT INC INC FACET JT LMBR/SAC 2ND LEVEL NJX 31714 [facility] VALENTEON DX/THER 6 [facility] AGT PVRT INC INC FACET JT LMBR/SAC 1 LEVEL BRONCHOSC 84567 RHIANNA MASKEY OPY 6 MEDICAL ALISSA W/TRANSBR SERV ONCHIAL FOUNDATIO LUNG BX 1 N LOBE INJECTION J3010 [facility] FENTANYL 6 HEALTHCAR HEALTHCAR CITRATE E E 0.1 MG [facility] INFUSION J7030 [facility] NORMAL 6 HEALTHCAR HEALTHCAR SALINE E E SOLUTION [facility] 1000 CC CUL BACT 75031 [place] AEROBIC 6 HEALTHCAR HEALTHCAR ADDL E E METHS [facility] [place] T[place] [address] [place] SLIDE 6 HEALTHCAR HEALTHCAR SAMPS E E SKN/HR/NL [facility] S FNGI/ECTO PARASIT SMR PRIM 12497 [place] SRC 6 HEALTHCAR HEALTHCAR FLUORESCE E E NT&/AFS [facility] BCT FNGI PARASIT CUL BACT 88386 [facility] XCPT 6 HEALTHCAR HEALTHCAR URINE E E BLOOD/STO [facility] OL AEROBIC ISOL CULTURE 23644 [facility] TUBERCLE/ 6 HEALTHCAR HEALTHCAR OTH E E ACID-FAST [facility] BACILLI ANY ISOL INJECTION J2250 [facility] 6 HEALTHCAR HEALTHCAR MIDAZOLAM E E HCL PER [facility] 1 MG HOMOGENIZ 75315 [facility] ATION 6 HEALTHCAR HEALTHCAR TISSUE E E CULTURE [facility] CULTURE 04485 [facility] FUNGI 6 HEALTHCAR HEALTHCAR DEFINITIV E E E ID EACH [facility] ORGANISM YEAST CONCENTRA 51529 [facility] TION 6 HEALTHCAR HEALTHCAR INFECTIOU E E S AGENTS [facility] SPECIAL 21685 [facility] PURDOM STAIN 6 Y OF MAT GROUP 1 [place] [facility] NISMS I&R CYTP 26674 [facility] ABSNER SLCTV 6 Y OF CHANDAN CELL [place] [facility] NT INTERPJ XCP[place] C/[place] [address] [facility] PURDOM SURG 6 Y OF MAT PATHOLOGY [place] [facility] GROSS&LESLIE ROSCOPIC EXAM SUSCEPTIB 26006 [facility] ILITY 6 HEALTHCAR HEALTHCAR STUDY E E ANTIMICRO [facility] BIAL ENZYME DETCJ IADNA NOS 40852 [facility] DIRECT 6 HEALTHCAR HEALTHCAR PROBE TQ E E EACH [facility] ORGANISM SUSCEPTBI 24520 [facility] LTY STDY 6 HEALTHCAR HEALTHCAR ANTIMICRB E E IAL AGNT [facility] AGAR DILUTJ CULTURE 65590 [facility] FNGI 6 HEALTHCAR HEALTHCAR MOLD/YEAS E E T PRSMPTV [facility] OTH XCPT BLOOD [facility] [place] [address] [place] W/BRNCL 6 MEDICAL MEDICAL ALVEOLAR SERV SERV LAVAGE FOUNDATIO FOUNDATIO N N APPL 80947 [facility] MODALITY 6 [facility] 1/> AREAS INC INC ELEC STIMJ UNATTENDE D APPLICATI 45681 [facility] ON 6 [facility] HOSP MODALITY INC INC 1/> AREAS HOT/COLD PACKS APPL 15458 [facility] MODALITY 6 [facility]OSP 1/> AREAS INC INC ULTRASOUN D EA [address] THORAX 38705 [place] [facility] ALL W/O 6 MEDICAL CONTRAST IMAGING MATERIAL ASS APPL 94952 [facility] MODALITY 6 [facility] H[facility]OS[facility] 1/> AREAS INC INC ULTRASOUN D EA 15 MIN APPLICATI 94949 [facility] ON 6 [facility]OS[facility] MODALITY INC INC 1/> AREAS HOT/COLD PACKS APPL 99900 [facility] MODALITY 6 [facility]OS[facility] 1/> AREAS INC INC ELEC STIMJ UNATTENDE D APPL 36283 [facility] MODALITY 6 MEM H[facility] MEM HOSP 1/> AREAS INC INC ELEC STIMJ UNATTENDE D APPLICATI 15632 [facility] ON 6 [facility]OS[facility] MODALITY INC INC 1/> AREAS HOT/COLD PACKS APPL 89732 [facility] MODALITY 6 [facility] 1/> AREAS INC INC ULTRASOUN D EA 15 MIN APPLICATI 18343 [facility] ON 6 [facility]OS[facility] MODALITY INC INC 1/> AREAS HOT/COLD PACKS APPL 78362 [facility] MODALITY 6 [facility] 1/> AREAS INC INC ELEC STIMJ UNATTENDE D THERAPEUT 47918 [facility] IC PX 1/> 6 [facility]OS[facility] AREAS INC INC EACH 15 MIN EXERCISES APPL 13745 [facility] MODALITY 6 [facility] HOSP 1/> AREAS INC INC ULTRASOUN D EA 15 MIN APPL 46526 [facility] MODALITY 6 [facility]OS[facility] 1/> AREAS INC INC ULTRASOUN D EA 15 MIN APPL 00743 [facility] MODALITY 6 [facility]OSP 1/> AREAS INC INC ELEC STIMJ UNATTENDE D APPLICATI 28818 [facility] ON 6 [facility]OSP MODALITY INC INC 1/> AREAS HOT/COLD PACKS APPLICATI 05035 [facility] ON 6 [facility]OSP MODALITY INC INC 1/> AREAS HOT/COLD PACKS APPL 72405 [facility] MODALITY 6 [facility] 1/> AREAS INC INC ELEC STIMJ UNATTENDE D APPL 13815 [facility] MODALITY 6 [facility]OSP 1/> AREAS INC INC ULTRASOUN D EA 15 MIN APPL 89563 [facility] MODALITY 6 [facility]OS[facility] 1/> AREAS INC INC ULTRASOUN D EA 15 MIN APPL 44160 [facility] MODALITY 6 [facility]OSP 1/> AREAS INC INC ELEC STIMJ UNATTENDE D APPLICATI 92293 [facility] ON 6 [facility]OS[facility] MODALITY INC INC 1/> AREAS HOT/COLD PACKS APPLICATI 49886 [facility] ON 6 [facility]OS[facility] MODALITY INC INC 1/> AREAS HOT/COLD PACKS APPL 17418 [facility] MODALITY 6 [facility] 1/> AREAS INC INC ELEC STIMJ UNATTENDE D APPL 55406 [facility] MODALITY 6 [facility]OSP 1/> AREAS INC INC ULTRASOUN D EA 15 MIN THERAPEUT 88951 [facility] IC PX 1/> 6 [facility] AREAS INC INC EACH 15 MIN EXERCISES PHYSICAL 71339 [facility] THERAPY 6 [facility] [place] [address] [facility], PICKLESIM SURG 6 [facility] PATHOLOGY GROSS&LESLIE ROSCOPIC EXAM CREATININ 99273 LAB [facility] LAB R[facility] E OTHER 6 [facility] S[facility]INGS HOLDINGS DRUG TST G0483 [facility] DEFINITV [address] ID HOLDINGS HOLDINGS METH P DAY 22/MORE DR CL CATHETER C1887 [facility] GUIDING 6 [facility] INC INC INJECTION J1644 [facility] HEPARIN 6 [facility] SODIUM INC INC PER 1000 UNITS CATH PLMT 70086 [facility] KORTNEY L HRT & 6 PHYSICIAN MAT ARTS S GROUP W/NJX & ANGIO IMG S&I LOCM Q9967 [facility] [phone] 6 [facility] MG/ML INC INC IODINE CONCENTRA TION PER ML GUIDE C1769 [facility] WIRE 6 [facility] INC INC CATHETER C1725 [facility] TRANSLUMI 6 [facility] H[facility] NAL INC INC ANGIOPLAS TY NON-LASER UNCLASSIF J3490 [facility] IED DRUGS 6 [facility] INC INC NON-INVAS 20248 [facility] [place] [facility] ARITA ALL FARIDA 6 MEDICAL PHYSIOLOG IMAGING IC STUDY ASS EXTREMITY 3 LEVLS TECHNETIU A9500 [facility] Kothari TC-99M 6 [facility] H[facility] SESTAMIBI INC INC DX PER STUDY DOSE CV STRS 71476 [facility] TST 6 [facility] XERS&/OR INC INC RX CONT ECG TRCG ONLY INJECTION J2785 [facility] 6 [facility] REGADENOS INC INC ON 0.1 MG MYOCARDIA 68584 [facility] L SPECT 6 [facility] MULTIPLE INC INC STUDIES ECHO 78435 RHIANNA RIVERA TRANSTHOR 6 MEDICAL MARTINEZ MAN C R-T 2D SERV W/WO FOUNDATIO M-MODE N REC F-UP/LMTD ECHO 18800 [facility] TTHRC R-T 6 [facility]OS[facility] 2D INC INC W/WOM-MOD E COMPL SPEC&COLR D ECG 57846 [facility] ROUTINE 6 [facility] ECG INC INC W/LEAST 12 LDS TRCG ONLY W/O I&R ECG 65340 [facility] ROUTINE 6 CULAR MAT ECG CONSULTAN W/LEAST TS O 12 LDS I&R ONLY BLOOD 76561 FAMILY FAMILY COUNT 6 CARE CARE COMPLETE ASSOCIATE ASSOCIATE AUTO&AUTO S S DIFRNTL WBC CT THORAX 29591 [facility] W/O 5 [facility] CONTRAST INC INC MATERIAL COLLECTIO 77405 [facility] N VENOUS 5 [facility] BLOOD INC INC VENIPUNCT URE RADIOLOGI 69755 [facility] C [facility] ON CHEST SINGLE VIEW FRONTAL RADIOLOGI 31105 RHIANNA SHAW C 5 MEDICAL AYA MAR EXAMINATI SERV ON CHEST FOUNDATIO SINGLE N VIEW FRONTAL INJECTION J1170 [facility] UNIVERS 5 Y Y HYDROMORP [facility] YANCI UP TO 4 MG CULTURE 59516 [facility] FNGI 5 Y Y MOLD/YEAS [facility] T PRSMPTV OTH XCPT BLOOD PROTHROMB 69366 [facility] UNIVERS IN TIME 5 Y Y HOSPITAL HOSPITAL INFUSION J7030 [facility] NORMAL 5 Y Y SALINE [facility] SOLUTION 1000 CC INJECTION J3010 [facility] FENTANYL 5 Y Y CITRATE [facility] 0.1 MG TISS SAM 06016 [facility] SLIDE 5 Y Y [facility] SKN/HR/NL S FNGI/ECTO PARASIT SMR PRIM 78550 [facility] SRC 5 Y Y [facility] HOSPITAL NT&/AFS BCT FNGI PARASIT CUL BACT 78872 [facility] XCPT 5 Y Y URINE HOSPITAL HOSPITAL BLOOD/STO OL AEROBIC ISOL CULTURE 41539 [facility] BACTERIAL 5 Y Y ANY HOSPITAL HOSPITAL SOURCE ANAEROBIC ISO&ID CULTURE 41632 [facility] TUBERCLE/ 5 Y Y OTH HOSPITAL HOSPITAL ACID-FAST BACILLI ANY ISOL THROMBOPL 78299 [facility] ASTIN 5 Y Y TIME HOSPITAL HOSPITAL PARTIAL PLASMA/WH OLE BLOOD BASIC 68179 [facility] METABOLIC 5 Y Y PANEL HOSPITAL HOSPITAL CALCIUM TOTAL GUIDE C1769 [facility] WIRE 5 Y Y HOSPITAL HOSPITAL INJECTION J2250 [facility] 5 Y Y [facility] HCL PER 1 MG BIOPSY 64603 [facility] LUNG/MEDI 5 Y Y ASTINUM [facility] PERCUTANE OUS NEEDLE HOMOGENIZ 17518 [facility] ATION 5 Y Y TISSUE HOSPITAL HOSPITAL CULTURE SMR PRIM 36043 [facility] SRC 5 Y Y GRAM/GIEM HOSPITAL HOSPITAL SA STAIN BCT FUNGI/JEFF L BLOOD 63079 [facility] COUNT 5 Y Y COMPLETE HOSPITAL HOSPITAL AUTOMATED CATHETER C1729 [facility] DRAINAGE 5 Y Y HOSPITAL HOSPITAL RADIOLOGI 98360 [place] [facility] C 5 MEDICAL AYA MAR EXAMINATI SERV ON CHEST [place] [address] [facility] GUIDANCE 5 Y Y NEEDLE HOSPITAL HOSPITAL PLACEMENT SPCL STN 31686 [facility] 2 I&R 5 Y Y EXCPT [facility]OSPITAL [facility] MICROORG/ ENZYME/IM CYT SPECIAL 30121 [facility] STAIN 5 Y Y GROUP 1 HOSPITAL HOSPITAL MICROORGA NISMS I&R PATH 49594 [facility] 5 Y Y SURG [facility]OSPITAL [facility] CYTOLOGIC EXAM INITIAL SITE PATH 96107 [facility] 5 Y Y SURG [facility] CYTOLOGIC EXAM ADDL SITE PERQ 80642 [place] STRAIN DRAINAGE 5 MEDICAL JUAN DAVID PLEURA SERV INSERT FOUNDATIO CATH N W/[place] [address] [facility] SURG 5 Y Y PATHOLOGY [facility] GROSS&LESLIE ROSCOPIC EXAM IMHISTOCH 18964 [facility] EM/CYTCHM 5 Y Y [address] [place] [address] ANTIBODY STAIN PROCEDURE [place] 03140 [facility] IMAGING 5 Y Y [facility] ATTENUATI ON SKULL BASE MID-THIGH FLUORODEO A9552 [facility] XYGLUCOSE 5 Y Y F-18 FDG [facility] DX UP [place] [address] [place] [address] [facility] THYROID 5 [facility] STIMULATI INC INC NG HORMONE TSH COMPREHEN 74063 [facility] SIVE 5 [facility] METABOLIC INC INC PANEL COLLECTIO 96477 [facility] N VENOUS 5 [facility] BLOOD INC INC VENIPUNCT URE BRNCDILAT 56111 [facility] RSPSE 5 [facility] SPMTRY INC INC PRE&POST- BRNCDILAT ADMN BLOOD 28394 [facility] COUNT 5 [facility] COMPLETE INC INC AUTO&AUTO DIFRNTL WBC ALPHA-1-A 67067 [facility] NTITRYPSI 5 [facility] N INC INC PHENOTYPE NONINVASI 81606 ED[facility] BROOKE VE 5 [facility] EAR/PULSE [place] M[place] [address] EDWARD[facility] BROOKE DIFFUSING 5 [facility] CAPACITY INC INC GAS 83706 EDWARD[facility] BROOKE DILUT/WAS 5 [facility] HOUT LUNG INC INC VOL W/WO DISTRIB VENT&V LOCM Q9967 EDWARDO BROOKE [phone] [facility] MG/ML INC INC IODINE CONCENTRA TION PER ML CT THORAX 66377 [place] BEINEKE 5 MEDICAL ZHEN W/CONTRAS IMAGING T ASS MATERIAL CREATININ 86906 ED[facility] BROOKE E BLOOD 5 [place] [address] [facility] BROOKE UREA 5 [facility] NITROGEN INC INC QUANTITAT FARIDA COLLECTIO 20778 EDWARDO BROOKE N VENOUS 5 [facility] BLOOD INC INC VENIPUNCT URE RADIOLOGI 94982 [place] ARITA ALL C EXAM 5 MEDICAL CHEST 2 IMAGING VIEWS [place] FRONTAL&[place] [address] MADAR BUX BUX ANJ JOINT 5 ARTHRGRPH Y&/ANES/S TEROID W/ANUJ OPH 35908 [facility] 4 XM&EVAL COMPRE NEW PT 1/> VST Encounters Encounter Start End Date Code Location Performer Type Date [facility] - 7 7 [facility] OUTPATIEN INC T OFFICE [id number] EDWARD[facility] OUTPATIJAIR 7 7 [facility] T [facility]ISIT INC 10 MINUTES [facility] - 7 7 [facility] OUTPATIEN INC [facility] EDWARDO - 6 6 [facility] T OFFICE 82097 EDWARD[facility] OUTPATIEN 6 6 [facility] T VISIT INC 10 MINUTES OFFICE 44496 IVELISSE AMADO OUTPATIEN 6 6 MD JARRETT, T VISIT PSC 15 MINUTES OFFICE 32608 RHIANNA LEBLANCPATIJAIR 6 6 MEDICAL T VISIT SERV 25 FOUNDATIO MINUTES [facility] EDWARDO - 6 6 [facility] - 6 6 [facility] EDWARD[facility] - 6 6 [facility] OUTPATIEN INC T OFFICE 08513 IVELISSE AMADO OUTPATIEN 6 6 MD JARRETT, T VISIT PSC 15 MINUTES OFFICE 32162 [facility] GAN 6 6 [facility] T VISIT INC 10 MINUTES OFFICE 48081 RHIANNA GAN 6 6 MEDICAL JAM T VISIT SERV 25 FOUNDATIO MINUTES [facility] EDWARDO - 6 6 [facility] OUTPATIEN INC T OFFICE 37378 FAMILY JOCELINE OUTPATIEN 6 6 CARE R H T VISIT ASSOCIATE 15 S MINUTES [facility] - 6 6 [facility] OFFICE 65902 IVELISSE AMADO JUAN DAVID OUTPATIEN 6 6 MD JARRETT, T VISIT [facility] 15 MINUTES OFFICE 47461 ED[facility] OUTPATIEN 6 6 [facility] T [facility]IT INC [facility]UTES [facility] T OFFICE [id number] FAMILY JOCELINE OUTPATIEN 6 6 CARE R H T VISIT ASSOCIATE 15 S MINUTES [facility] - [facility] 6 [facility] T OFFICE [id number] [place] OUTPATIEN 6 6 MEDICAL JAM T VISIT SERV 15 FOUNDATIO MINUTES [facility] - 6 6 [facility] T OFFICE 07041 IVELISSE VELASQUEZ OUTPATIEN 6 6 MD JARRETT, T VISIT PSC 10 MINUTES [facility] T OFFICE [id number] FAMILY JOCELINE OUTPATIEN 6 6 CARE R H T VISIT ASSOCIATE 15 S MINUTES OFFICE 49211 [facility] N[facility] OUTPATIEN 6 6 PHYSICIAN CAM T VISIT S GROUP 15 MINUTES OFFICE [id number] FAMILY JOCELINE OUTPATIEN 6 6 CARE R H T VISIT ASSOCIATE 25 S MINUTES OFFICE 90319 FAMILY JOCELINE OUTPATIEN 6 6 CARE R H T VISIT ASSOCIATE 15 S MINUTES OFFICE 97140 [facility] JOCELINE OUTPATIEN 6 6 CARE R H T VISIT ASSOCIATE 15 S [facility] 6 [facility] INC T OFFICE 05009 FAMILY JOCELINE OUTPATIEN 6 6 CARE R H T VISIT ASSOCIATE 15 S [facility] - 6 6 [facility] - 6 6 [facility] T OFF[facility] 19654 CARDIOVAS KORTNEY [facility]PATIEN 6 6 CULAR MAT T [facility] 60 CONSULTAN MINUTES [facility] - 6 6 [facility] T OFFICE 56386 FAMILY JOCELINE OUTPATIEN 6 6 CARE R H T VISIT ASSOCIATE 15 S [facility] - 5 5 [facility] T OFFICE 16783 FAMILY JOCELINE OUTPATIEN 5 5 CARE R H T VISIT ASSOCIATE 15 S [facility] 5 5 [facility] UNIVERS[facility] - 5 5 Y [facility] T OFFICE 95397 FAMILY JOCELINE [facility]PATIEN 5 5 CARE R H T VISIT ASSOCIATE 15 S [facility] UNIVERSIT - 5 5 Y [facility] - 5 5 [facility] 5 5 [facility] 5 5 [facility] 5 5 [facility] 5 5 [facility] T OFFICE 33470 [facility] 5 [facility] T VISIT INC 10 MINUTES OFFICE 82912 [facility] 5 5 [facility] T VISIT INC 10 MINUTES [facility] - 5 5 [facility] INC T OFFICE 86937 DON FARIAS ANYanni OUTPATIEN 5 5 T NEW 30 MINUTES OFFICE 09013 CHRISTIE LOZANO OUTPATIEN 4 4 T NEW 45 MINUTES
--- OUTSIDE RECORDS SUMMARY | 2016-05-02 11:48 | External Medical Summary Rpt ---
Demographics Preferred Language Indonesian Marital Status Unknown Anglican Affiliation Unknown Race Unknown Ethnic Group Unknown Author Author , Organization [employer] Address Unknown Phone Unavailable Purpose Continuity of Care Document - through 2016 Immunization No patient found.
--- OUTSIDE RECORDS SUMMARY | 2016-05-02 11:48 | External Medical Summary Rpt ---
Author Author SAMANTHA Barroso, SAMANTAH Barroso Organization [employer] Address Unknown Phone Unavailable
--- OUTSIDE RECORDS SUMMARY | 2016-05-02 11:48 | External Medical Summary Rpt ---
Author Author SAMANTHA Barroso, SAMANTHA Barroso Organization [employer] Address Unknown Phone Unavailable
--- OUTSIDE RECORDS SUMMARY | 2016-05-02 11:48 | External Medical Summary Rpt ---
Author Author , Organization [employer] Address Unknown Phone Unavailable Care Team Providers Care Sales Lead Name Role Phone MIGUELJED CONWAY, Unavailable Unavailable MIGUEL FARIAS MD, PSC, Unavailable Unavailable IVELISSE FARIAS MD, PSC BEJIMBO WEN Unavailable Unavailable ZHEN ARITA ALL, ARITA ALL Unavailable Unavailable BUX ANJ, BUX ANJ Unavailable Unavailable DUEBER SUSANNE, DUEBER Unavailable Unavailable SUSANNE DUFF, DUFF Unavailable Unavailable DUFF JUAN DAVID, DUFF JUAN DAVID Unavailable Unavailable [facility] Un[facility], [facility] Unavailable Unavailable INC, [facility] SWEET BERTO, SWEET BERTO Unavailable Unavailable SWEET BERTO, SWEET BERTO Unavailable Unavailable [facility], Unavailable Unavailable [facility] SORIANO TRA, SORIANO TRA Unavailable Unavailable SORIANO TRA, SORIANO TRA Unavailable Unavailable [facility] Un[facility], [facility] Unavailable Unavailable [facility], [facility] Unavailable Unavailable [facility], [facility] DON BUTLER MD Unavailable Unavailable JARRETT ROY FOX, FOX Unavailable Unavailable FOX JAM, Unavailable Unavailable FOX JAM JOCELINE, JOCELINE Unavailable Unavailable JOCELINE R H, Unavailable Unavailable JOCELINE R [facility] PICKAMAYA SCOTT, Unavailable Unavailable PICKAMAYA SCOTT SCHULSTAD CAM, Unavailable Unavailable [facility] KORTNEY MAT, Unavailable Unavailable KORTNEY MAT TRENTON PAR, TRENTON PAR Unavailable Unavailable STRAIN JUAN DAVID, STRAIN Unavailable Unavailable JUAN DAVID [facility] Unavailable Unavailable [facility], [facility], Unavailable Unavailable [facility] Unavailable [facility] Purpose Continuity of Care Document - 07-03-2013 through 2016 Problems Code Diagnosis DOS Provider Status [id number] SPINAL 03-20-2016 [facility] STENOSIS [facility] LUMBAR INC REGION B391 CHRONIC 02-22-2016 [facility] HISTOPLASMO INC SIS CAPSULATI Z5181 ENCOUNTER 02-22-2016 [facility] FOR [facility] THERAPEUTIC INC DRUG LEVEL MONITORING L821 OTHER 02-18-2016 [facility] KERATOSIS [id number] SPONDYLOSIS 02-01-2016 IVELISSE FARIAS, W/O MD, PSC MYELOPATH/R ADICULOPATH Y LUMB RGN 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 FARIAS RAL DISC , PSC D/O W/RADICULOP ATHY LUMB RGN M5416 RADICULOPAT 02-01-2016 [facility] HY LUMBAR [facility] REGION INC B392 PULMONARY 01-24-2016 [facility] CAPSULATI UNSPECIFIED J441 CHRONIC 01-24-2016 [facility] P[facility]ARY [facility] DZ W/EXACERBAT ION R600 LOCALIZED 01-03-2016 [facility] EDEMA [facility] INC M5136 OTH 12-28-2015 [facility] INTERVERTEB [facility] RAL DISC INC DEGEN LUMBAR REGION [id number] OTHER LONG 12-17-2015 [facility] CURRENT [facility] DRUG THERAPY G894 CHRONIC 12-14-2015 [facility] SYNDROME J431 PANLOBULAR 12-14-2015 [facility] EMPHYSEMA [facility] M545 LOW BACK 12-14-2015 [facility] Z720 TOBACCO USE 12-14-2015 [facility] M5406 PANNICULITI 11-30-2015 [facility] S AFFCT [facility] REGIONS NCK INC BACK LUMB REGION J189 PNEUMONIA 11-23-2015 [facility] ORGANISM HOSPI J984 OTHER 11-23-2015 [facility] DISORDERS [facility] OF LUNG HOSPI R918 OTHER 11-23-2015 [facility] NONSPECIFIC [facility] ABNORMAL HOSPI FINDING OF LUNG FIELD Z942 LUNG 11-23-2015 [facility] TRANS[facility] STATUS [facility] R911 SOLITARY 10-21-2015 [facility] PULMONARY [facility] NODULE INC G8929 OTHER 10-06-2015 [facility] CH[facility] PAIN [facility] J439 EMPHYSEMA 10-06-2015 [facility] UNSPECIFIED [facility] M549 DORSALGIA 10-06-2015 [facility] U[facility]PECIF[facility] D07511 OTHER SPEC 07-06-2015 [facility] [employer] NEOPLASM SKIN OTHER PART TRUNK D485 NEOPLASM OF 06-24-2015 [facility] UNCERTAIN PHYSICIANS BEHAVIOR OF GROUP SKIN Z7689 PERSONS 05-21-2015 [facility] ENCOUNTER [facility] [employer] HOLDINGS OT CIRCUMSTANC ES I208 OTHER FORMS 03-30-2015 [facility] OF ANGINA [facility] PECTORIS INC I209 ANGINA 03-30-2015 [facility] PECTORIS PHYSICIANS UNSPECIFIED GROUP J449 CHRONIC 03-30-2015 [facility] OBSTRUCTIVE [facility] PULMONARY INC DISEASE UNS R079 CHEST PAIN 03-30-2015 [facility] UNSPECIFIED [facility] INC R9431 ABNORMAL 03-30-2015 [facility] ELECTROCARD [facility] IOGRAM INC R9439 ABNORMAL 03-30-2015 [facility] RESULT OT PHYSICIANS CARDIOVASCU GROUP LR FUNCTION STUDY R0602 SHORTNESS 03-22-2015 [facility] OF BREATH [facility] INC R0600 DYSPNEA 02-23-2015 [facility] UNSPECIFIED [facility] INC J209 ACUTE 02-20-2015 [facility] BRONCHITIS [facility] UNSPECIFIED Z8249 FAMILY HX 02-20-2015 [facility] ISCHEMIC [facility] HRT DZ OTH DZ CIRC SYSTEM [id number] STRAIN 12-11-2014 [facility] MUSCLE [facility] FASCIA & TENDON LOW BACK INITIAL 29115 OTHER 10-29-2014 [facility] PNEUMOTHORA SERV X [facility]OUNDATION 486 PNEUMONIA, 10-28-2014 [facility] UNSPECIFIED 5121 IATROGENIC 10-28-2014 [facility] X 5130 ABSCESS OF 10-28-2014 [facility] LUNG [facility] HOSPI 515 POSTINFLAMM 10-28-2014 [facility] ATORY [facility] PULMONARY HOSPI FIBROSIS 71499 OTHER 10-28-2014 [facility] DISEASES [facility] LUNG NOT HOSPI ELSEWHERE CLASSIFIED 44862 OTHER 10-28-2014 [facility] NONSPECIFIC SERV ABNORMAL [facility]OUND[facility] FINDING OF LUN[place] FIELD V1083 PERSONAL 10-28-2014 [facility] OTHER MALIGNANT NEOPLASM SKIN V5882 ENCOUNTER 10-28-2014 [facility] FIT[facility]&ADJ SERV [facility] NON-VASCULA R CATHETER NEC 496 CHRONIC 10-27-2014 [facility] AIRWAY [facility] OBSTRUCTION NEC 7226 DEGENERATIO 10-27-2014 [facility] N [facility] INTERVERTEB RAL DISC SITE UNSPEC 03790 ENTHESOPATH 10-27-2014 [facility] Y OF [facility] UNSPECIFIED SITE 7866 SWELLING, 10-27-2014 [facility], OR [facility] LUMP IN CHEST 4928 OTHER 09-25-2014 [facility] 85962 LOSS OF 09-25-2014 [facility] 46961 SOLITARY 09-25-2014 [facility] PULMON[facility] NODULE [facility] 47049 OBSTRUCTIVE 09-14-2014 [facility] CHRONIC [facility] BRONCHITIS INC WITHOUT EXACERBAT 94819 SHORTNESS 08-31-2014 [facility] 7932 NONSPC ABN 08-31-2014 [facility] FINDMOJGAN [facility] RAD&OTH INC EXAM OTH INTRTHOR ORGN 7209 SACROILIITI 06-01-2014 DON FARIAS S NOT MD ELSEWHERE CLASSIFIED 10599 DEGEN 06-01-2014 DON FARIAS LUMBAR/LUMB OSACRAL INTERVERTEB RAL DISC 7244 THORACIC/FAVIOLA 06-01-2014 DON FARIAS MBOSACRAL NEURITIS/RA DICULITIS UNSPEC 68036 DISPLCMT 04-13-2014 DON FARIAS LUMBAR INTERVERT DISC [...] ia de te s n re d SY 00 02 03 10 30 00 [...] 8 DI PATEL LE R HY 00 02 03 [address] 40 -0 -0 .0 00 TE ti OC 60 3- 3- 00 01 ve OD 12 20 20 16 AI ON 40 17 17 96 D -A 1 59 PH CE AR TA M OR #3 NO 93 PH 8 7. 5- 32 5 IT 00 02 02 60 30 00 RI Ac RA 37 -0 -2 .0 00 TE ti CO 85 1- 4- 00 01 ve NA 10 20 20 16 AI ZO 09 17 17 93 D LE 3 28 PH AR 10 M 0 #3 MG 93 8 CA PS UL E BU 00 02 02 60 30 00 RI Ac DC 18 -0 -2 .0 00 TE ti [...] 1 21 PH CE AR TA M OR #3 NO 93 PH 8 7. 5- 32 5 ME 00 12 01 21 6 00 RI Ac TH 78 -1 -1 .0 00 TE ti YL 15 2- 3- 00 01 ve DC 02 20 20 16 AI ED 20 [...] 1 08 PH CE AR TA M OR #3 NO 93 PH 8 7. 5- [...] -0 .0 00 TE ti IV 70 2- 9- 00 01 ve A 07 20 20 13 AI 18 54 16 17 92 D 1 44 PH MC AR G M CP #3 -H 93 AN 8 DI PATEL LE R SY 00 12 01 10 30 00 RI Ac MB 18 -0 -0 .1 00 TE ti IC 60 2- 9- 99 01 ve OR 37 20 20 15 AI T 02 16 17 18 D 16 0 08 PH 0- AR 4. M 5 #3 MC 93 G 8 IN PATEL LE R Procedures Procedure DOS Code Location Performer Comment COLLECTIO 13248 [facility] N VENOUS 7 [facility] BLOOD INC INC VENIPUNCT URE COMPREHEN 02696 [facility] SIVE 7 [facility] METABOLIC [place]N 82507 FAMILY JOCELINE LESION 1 7 CARE TRUNK/ARM ASSOCIATE /LEG DIAM S 1.1-2.0 CM NJX 76502 IVELISSE DUFF DX/THER 6 MD JARRETT, AGT PVRT PSC FACET JT LMBR/SAC 3+ LEVEL NJX 46124 IVELISSE DUFF DX/THER 6 MD JARRETT, AGT PVRT PSC FACET JT LMBR/SAC 1 LEVEL NJX 43430 IVELISSE DUFF DX/THER 6 MD JARRETT, AGT PVRT PSC FACET JT LMBR/SAC 2ND LEVEL BLOOD 12452 [facility] COUNT 6 [facility] COMPLETE INC INC AUTO&AUTO DIFRNTL WBC COLLECTIO 54644 [facility] N VENOUS 6 [facility] BLOOD INC INC VENIPUNCT URE COMPREHEN 24987 [facility] SIVE 6 [facility]OS[facility] METABOLIC INC INC PANEL COLLECTIO 13171 [facility] N VENOUS 6 [facility] BLOOD INC INC VENIPUNCT URE COMPREHEN 48921 [facility] SIVE 6 [facility] METABOLIC INC INC PANEL BLOOD 84463 [facility] COUNT 6 [facility] COMPLETE INC INC AUTO&[place]O [place]IFRNTL WBC NJX 82963 IVELISSE ANEUDY JUAN DAVID DX/THER 6 MD JARRETT, AGT PVRT PSC FACET JT LMBR/SAC 1 LEVEL NJX 64563 IVELISSE ANEUDY JUAN DAVID DX/THER 6 MD JARRETT, AGT PVRT PSC FACET JT LMBR/SAC 2ND LEVEL NJX 12659 IVELISSE ECHAVARRIAKIM JUAN DAVID DX/THER 6 MD JARRETT, AGT PVRT PSC FACET JT LMBR/SAC 3+ LEVEL CONCENTRA 56050 [facility] TION 6 HEALTHCAR HEALTHCAR INFECTIOU E E S AGENTS [facility] CULTURE 90864 [facility] FUNGI 6 HEALTHCAR HEALTHCAR DEFINITIV E E E ID EACH [facility] ORGANISM YEAST HOMOGENIZ 13294 [facility] ATION 6 HEALTHCAR HEALTHCAR TISSUE E E CULTURE [facility] INJECTION J2250 [facility] 6 HEALTHCAR HEALTHCAR MIDAZOLAM E E HCL PER [facility] 1 MG CULTURE 34860 [facility] FNGI 6 HEALTHCAR HEALTHCAR MOLD/YEAS E E T PRSMPTV [facility] OTH XCPT BLOOD SUSCEPTBI 92365 [facility] LTY STDY 6 HEALTHCAR HEALTHCAR ANTIMICRB E E IAL AGNT [facility] AGAR DILUTJ IADNA NOS 79930 [facility] DIRECT 6 [facility]ALTH[facility] HEALTHCAR PROBE TQ E E [facility] ORGANISM SUSCEPTIB 00418 [facility] ILITY 6 HEALTHCAR HEALTH[facility] STUDY E E ANTIMICRO [facility] BIAL ENZYME DETCJ SPECIAL 09108 [facility] STAIN 6 HEALTHCAR HEALTHCAR GROUP 1 E E MICROORGA [facility] NISMS I&R BRONCHOSC 25192 [facility] OPY 6 HEALTHCAR HEALTHCAR W/TRANSBR E E ONCHIAL [facility] LUNG BX 1 LOBE CUL BACT 70719 [facility] AEROBIC 6 HEALTHCAR HEALTHCAR ADDL E E METHS [facility] DEFINITIV E EA ISOL INFUSION J7030 [facility] NORMAL 6 HEALTHCAR HEALTHCAR SALINE E E SOLUTION [facility] 1000 CC INJECTION J3010 [facility] FENTANYL 6 HEALTHCAR HEALTHCAR CITRATE E E 0.1 MG [facility] BRNCHSC 83132 [facility] W/BRNCL 6 HEALTHCAR HEALTHCAR ALVEOLAR E E [facility] CYTP 67516 [facility] SLCTV 6 HEALTHCAR HEALTHCAR CELL E E ENHANCEME [facility] NT INTERP[place] XCP[place] C/[place] L[place] [address] [facility] SURG 6 [facility]ALTHCAR HEALTHCAR PATHOLOGY E E [facility] GROSS&LESLIE ROSCOPIC EXAM CULTURE 81849 [facility] TUBERCLE/ 6 HEALTHCAR HEALTHCAR OTH E E ACID-FAST [facility] BACILLI ANY ISOL CUL BACT 26861 [facility] XCPT 6 HEALTHCAR HEALTHCAR URINE E E BLOOD/STO [facility] OL AEROBIC ISOL SMR PRIM 87461 [facility] SRC 6 HEALTHCAR HEALTHCAR FLUORESCE E E NT&/AFS [facility] [place] T[place] [address]451 [facility] SLIDE 6 HEALTHCAR HEALTHCAR SAMPS E E SKN/HR/NL [facility] S FNGI/ECTO PARASIT APPL 55209 [facility] MODALITY 6 [facility] 1/> AREAS INC INC ULTRASOUN D EA [address] THORAX 23190 [facility] W/O 6 [facility] CONTRAST INC INC MATERIAL APPL 73140 [facility] MODALITY 6 [facility] 1/> AREAS INC INC ELEC STIMJ UNATTENDE D APPLICATI 70488 [facility] ON 6 [facility] MODALITY INC INC 1/> AREAS HOT/COLD PACKS APPLICATI 27880 [facility] ON 6 [facility] MODALITY INC INC 1/> AREAS HOT/COLD PACKS APPL 15787 [facility] MODALITY 6 [facility] 1/> AREAS INC INC ELEC STIMJ UNATTENDE D APPL 21451 [facility] MODALITY 6 [facility] 1/> AREAS INC INC ULTRASOUN D EA 15 MIN APPL 55707 [facility] MODALITY 6 [facility] 1/> AREAS INC INC ULTRASOUN D EA 15 MIN APPLICATI 78962 [facility] ON 6 [facility] MODALITY INC INC 1/> AREAS HOT/COLD PACKS APPL 34778 [facility] MODALITY 6 [facility] 1/> AREAS INC INC ELEC STIMJ UNATTENDE D APPL 76676 [facility] MODALITY 6 MEM [facility]OS[facility] 1/> AREAS INC INC ELEC STIMJ UNATTENDE D THERAPEUT 81159 [facility] IC PX 1/> 6 [facility] AREAS INC INC EACH 15 MIN EXERCISES APPL 02709 [facility] MODALITY 6 [facility] 1/> AREAS INC INC ULTRASOUN D EA 15 MIN APPLICATI 98887 [facility] ON 6 MEM HOS[facility] MEM [facility]OSP MODALITY INC INC 1/> AREAS HOT/COLD PACKS APPLICATI 33729 [facility] ON 6 MEM HOS[facility]OS[facility] MODALITY INC INC 1/> AREAS HOT/COLD PACKS APPL 64777 [facility] BR[facility]KE MODALITY 6 MEM HOS[facility] 1/> AREAS INC INC ULTRASOUN D EA 15 MIN APPL 00785 [facility] MODALITY 6 [facility] 1/> AREAS INC INC ELEC STIMJ UNATTENDE D APPL 14252 [facility] MODALITY 6 MEM HOS[facility]OSP 1/> AREAS INC INC ELEC STIMJ UNATTENDE D APPL 50818 [facility] MODALITY 6 [facility] 1/> AREAS INC INC ULTRASOUN D EA 15 MIN APPLICATI 50246 [facility] ON 6 [facility]OSP MODALITY INC INC 1/> AREAS HOT/COLD PACKS APPLICATI 30462 [facility] ON 6 [facility] MODALITY INC INC 1/> AREAS HOT/COLD PACKS APPL 74385 [facility] MODALITY 6 MEM H[facility] 1/> AREAS INC INC ULTRASOUN D EA 15 MIN APPL 60464 [facility] MODALITY 6 [facility] 1/> AREAS INC INC ELEC STIMJ UNATTENDE D THERAPEUT 19672 [facility] IC PX 1/> 6 [facility] AREAS INC INC EACH 15 MIN EXERCISES APPL 57848 [facility] MODALITY 6 [facility] 1/> AREAS INC INC ULTRASOUN D EA 15 MIN APPLICATI 75100 [facility] ON 6 [facility] MODALITY INC INC 1/> AREAS HOT/COLD PACKS APPL 48826 [facility] MODALITY 6 [facility] 1/> AREAS INC INC ELEC STIMJ UNATTENDE D PHYSICAL 36622 [facility] THERAPY 6 [facility] [place] [address] [facility], PICKLESIM SURG 6 LLC ER [facility] PATHOLOGY GROSS&LESLIE ROSCOPIC EXAM CREATININ 82826 [facility] E OTHER 6 [facility] HOLDINGS DRUG TST G0483 [facility] DEFINITV [address] ID HOLDINGS HOLDINGS METH P DAY 22/MORE DR CL UNCLASSIF J3490 [facility] IED DRUGS 6 [facility] INC INC CATHETER C1725 [facility] TRANSLUMI 6 [facility] NAL INC INC ANGIOPLAS TY NON-LASER GUIDE C1769 [facility] WIRE 6 [facility] INC INC CATH PLMT 93611 [facility] Valerio HRT & 6 [facility] H[facility] ARTS INC INC W/NJX & ANGIO IMG S&I LOCM Q9967 [facility] 300-399 6 [facility] MG/ML INC INC IODINE CONCENTRA TION PER ML INJECTION J1644 [facility] HEPARIN 6 [facility] SODIUM INC INC PER 1000 UNITS CATHETER C1887 [facility] GUIDING 6 [facility] INC INC NON-INVAS 24115 [facility] FARIDA 6 [facility] PHYSIOLOG INC INC IC STUDY EXTREMITY 3 LEVLS MYOCARDIA 54484 [facility] Valerio SPECT 6 [facility] MULTIPLE INC INC STUDIES INJECTION J2785 [facility] 6 [facility] REGADENOS INC INC ON 0.1 MG CV STRS 01153 [facility] TST 6 [facility] XERS&/OR INC INC RX CONT ECG TRCG ONLY TECHNETIU A9500 [facility] Kothari TC-99M 6 [facility] SESTAMIBI INC INC DX PER STUDY DOSE ECHO 15091 [facility] TTHRC R-T 6 [facility] 2D INC INC W/WOM-MOD E COMPL SPEC&COLR D ECHO 93006 RHIANNA RIVERA TRANSTHOR 6 MEDICAL MARTINEZ MAN C R-T 2D SERV W/WO FOUNDATIO M-MODE N REC F-UP/LMTD ECG 37398 CARDIOVAS KORTNEY ROUTINE 6 CULAR MAT ECG CONSULTAN W/LEAST TS O 12 LDS I&R ONLY ECG 63363 [facility] ROUTINE 6 [facility] ECG INC INC W/LEAST 12 LDS TRCG ONLY W/O I&R BLOOD 16340 FAMILY FAMILY COUNT 6 CARE CARE COMPLETE ASSOCIATE ASSOCIATE AUTO&AUTO S S DIFRNTL WBC CT THORAX 40895 [facility] W/O 5 [facility] CONTRAST INC INC MATERIAL COLLECTIO 80196 [facility] N VENOUS 5 [facility] CL[facility] BLOOD INC INC VENIPUNCT URE RADIOLOGI 46820 [facility] 5 Y [facility] CHEST SINGLE VIEW FRONTAL RADIOLOGI 66832 [facility] 5 Y Y [facility] ON CHEST SINGLE VIEW FRONTAL INJECTION J1170 [facility] 5 Y Y [facility] YANCI UP TO 4 MG PATH 52154 [facility] CON[facility] 5 Y OF [facility] SURG [facility] EXAM ADDL SITE SPECIAL 92914 [facility] STAIN 5 Y OF [place]NE GROUP 1 [facility] NISMS I&R SPCL STN 25850 [facility] 2 I&R 5 Y OF [place]NE EXCPT [place] [facility]/ [facility] ENZYME/IM CYT PATH 07789 [facility] CONSLTJ 5 Y OF [place] SURG [facility] EXAM INITIAL SITE PROTHROMB 83353 [facility] IN TIME 5 Y Y HOSPITAL HOSPITAL CULTURE 46015 [facility]IT [facility]IV[facility] FNGI 5 Y Y MOLD/YEAS HOSPITAL HOSPITAL T PRSMPTV OTH XCPT BLOOD PERQ 38116 [place] STRAIN DRAINAGE 5 MEDICAL JUAN DAVID [place] SERV INSERT FOUNDATIO CATH N W/IMAGING GUIDE C1769 [facility] WIRE 5 Y Y HOSPITAL HOSPITAL BASIC 19749 [facility] METABOLIC 5 Y Y PANEL HOSPITAL HOSPITAL CALCIUM TOTAL THROMBOPL 50147 [facility] ASTIN 5 Y Y TIME HOSPITAL HOSPITAL PARTIAL PLASMA/WH OLE BLOOD CULTURE 75473 [facility] TUBERCLE/ 5 Y Y OTH HOSPITAL HOSPITAL ACID-FAST BACILLI ANY ISOL CULTURE 72346 [facility] BACTERIAL 5 Y Y ANY HOSPITAL HOSPITAL SOURCE ANAEROBIC ISO&ID CUL BACT 60231 [facility] XCPT 5 Y Y URINE HOSPITAL HOSPITAL BLOOD/STO OL AEROBIC ISOL SMR PRIM 19030 [facility] SRC 5 Y Y FLUORESCE [facility] NT&/AFS BCT FNGI [place] T[place] 75[address] [facility] SLIDE 5 Y Y [facility] SKN/HR/NL S FNGI/ECTO PARASIT RADIOLOGI 48990 [facility] C 5 [facility] FRONTAL CATHETER C1729 [facility] DRAINAGE 5 Y Y [facility] IMHISTOCH 97829 [facility] EM/CYTCHM 5 Y OF Aug [place] [facility] [address] [facility] SURG 5 Y OF AUG PATHOLOGY [place] [facility] GROSS&LESLIE ROSCOPIC EXAM BLOOD 02889 [facility] COUNT 5 Y Y COMPLETE HOSPITAL HOSPITAL AUTOMATED SMR PRIM 98082 [facility] SRC 5 Y Y GRAM/GIEM [facility] SA STAIN BCT FUNGI/JEFF L HOMOGENIZ 84610 [facility] 5 Y Y TISSUE [facility] HOSPITAL CULTURE BIOPSY 54109 [facility] LUNG/MEDI 5 Y Y [facility] PERCUTANE OUS NEEDLE INJECTION J2250 [facility] 5 Y Y MIDAZOLAM [facility] HCL [address] [facility] GUIDANCE 5 Y Y NEEDLE [facility] PLACEMENT INJECTION J3010 [facility] FENTANYL 5 Y Y CITRATE [facility] 0.[address] [facility] NORMAL 5 Y Y SALINE [facility] SOLUTION 1000 [place] [address] RHIANNA MONTEROHA PAR IMAGING [address] SERV ATTENUATI FOUNDATIO ON SKULL N BASE MID-THIGH FLUORODEO A9552 [facility] XYGLUCOSE 5 Y Y F-18 FDG [facility] DX UP TO 45 MCI COLLECTIO 99391 [facility] N VENOUS 5 [facility] BLOOD INC INC VENIPUNCT URE COMPREHEN 99668 [facility] SIVE 5 [facility] [place] [address] [facility] THYROID 5 [facility]OS[facility] STIMULATI INC INC NG HORMONE TSH GAS 68757 [facility] DILUT/WAS 5 [facility] HOUT LUNG INC INC VOL W/WO DISTRIB VENT&[place] [address] [facility] DIFFUSING 5 [facility] CAPACITY INC INC NONINVASI 83704 [facility] VE 5 [facility] EAR/PULSE INC INC OXIMETRY MULTIPLE DETER ALPHA-1-A 90296 [facility] NTITRYPSI 5 [facility] N INC INC PHENOTYPE BLOOD 54604 [facility] COUNT 5 [facility] COMPLETE INC INC AUTO&AUTO DIFRNTL WBC BRNCDILAT 51099 [facility] RSPSE 5 [facility] SPMTRY INC INC PRE&POST- BRNCDILAT ADMN LOCM Q9967 [facility] [phone] [facility] MG/ML INC INC IODINE CONCENTRA TION PER ML CT THORAX 6[address]68 [place] BEINE[place] 5 MEDICAL ZHEN W/CONTRAS IMAGING T ASS MATERIAL COLLECTIO 02719 [facility] N VENOUS 5 [facility] [place] [address] [facility] UREA 5 [facility] NITROGEN INC INC QUANTITAT FARIDA CREATININ 56114 [facility] E BLOOD 5 [facility] INC INC RADIOLOGI 61776 [place] ARITA ALL C EXAM 5 MEDICAL CHEST 2 IMAGING VIEWS [place] FRONT[place] [address] DON EPSETINX BUX ANJ JOINT 5 ARTHRGRPH Y&/ANES/S TEROID W/ANUJ OPHTH 27567 [facility] MEDICAL 4 XM&EVAL COMPRE NEW PT 1/> VST Encounters Encounter Start End Date Code Location Performer Type Date [facility] - 7 7 [facility]IEN INC T OFFICE 79929 [facility] 7 7 [facility]UT[facility] 7 [facility] - 6 6 [facility] OUTPATIEN INC T OFFICE 18094 IVELISSE AMADO OUTPATIEN 6 6 MD JARRETT, T VISIT PSC 15 MINUTES OFFICE 10194 [facility] 6 6 [facility] V[facility]IT INC 10 MINUTES OFFICE 48185 RHIANNA FOX OUTPATIEN 6 6 MEDICAL T VISIT SERV 25 FOUNDATIO MINUTES [facility] 6 [facility] T OFFICE 92027 IVELISSE AMADO OUTPATIJAIR 6 6 MD JARRTET, T VISIT PSC 15 MINUTES OFFICE 43215 [facility] 6 6 [facility] 10 [facility]UTES [facility] 6 6 [facility] INC T OFFICE 03323 RHIANNA FOX OUTPATIEN 6 6 MEDICAL JAM T VISIT SERV 25 FOUNDATIO MINUTES N OFFICE 74012 FAMILY JOCELINE OUTPATIEN 6 6 CARE R H T VISIT ASSOCIATE 15 S MINUTES [facility] - 6 6 [facility] OFFICE 99716 [facility]PATIEN 6 6 [facility] T V[facility] 10 [facility]UTES [facility] - 6 6 [facility]IEN INC T OFFICE 84801 IVELISSE AMADO JUAN DAVID OUTPATIEN 6 6 MD JARRETT, T VISIT PSC 15 MINUTES [facility] - 6 6 [facility] OUTPATIEN INC T OFFICE 99699 FAMILY JOCELINE OUTPATIEN 6 6 CARE R H T VISIT ASSOCIATE 15 S MINUTES [facility] - 6 6 [facility] OUTPATIEN INC T OFFICE 18395 [place] FOX OUTPATIEN 6 6 MEDICAL JAM T VISIT SERV 15 FOUNDATIO MINUTES [facility] - 6 6 [facility] - 6 6 [facility] OUTPATIEN INC T OFFICE 26249 IVELISSE WEISSJ OUTPATIEN 6 6 MD JARRETT, T VISIT PSC 10 MINUTES OFFICE 04245 FAMILY JOCELINE OUTPATIEN 6 6 CARE R H T VISIT ASSOCIATE 15 S MINUTES OFFICE 03628 [facility] NARENDRA OUTPATIEN 6 6 PHYSICIAN CAM T VISIT S GROUP 15 MINUTES OFFICE 70853 FAMILY JOCELINE OUTPATIEN 6 6 CARE R H T VISIT ASSOCIATE 25 S MINUTES OFFICE 43134 FAM[facility] JOCELINE OUTPATIEN 6 6 CARE R H T VISIT ASSOCIATE 15 S MINUTES OFFICE 14413 FAMILY JOCELINE OUTPATIEN 6 6 CARE R H T VISIT ASSOCIATE 15 S MINUTES [facility] - 6 6 [facility] INC T OFFICE 77761 FAMILY JOCELINE OUTPATIEN 6 6 CARE R H T VISIT ASSOCIATE 15 S [facility] - 6 6 [facility] T OFF[facility] [id number] CARDIOVAS KORTNEY OUTPATIEN 6 6 CULAR MAT [facility] [place] 60 CONSULTAN MINUT[facility] 6 [facility] T OFFICE [id number] FAMILY JOCELINE OUTPATIEN 6 6 CARE R H T VISIT ASSOCIATE [address] [facility] - 5 5 [facility] T OFF[facility] [id number] FAMILY JOCELINE [facility]PATIEN 5 5 CARE R H T VISIT ASSOCIATE [address] [facility] - 5 5 [facility] - 5 5 Y [facility] T OFFICE [id number] FAMILY JOCELINE [facility]PATIEN 5 5 CARE R H T VISIT ASSOCIATE [address] [facility] - [address] [facility] 5 5 [facility] 5 5 [facility] 5 5 [facility] - 5 5 [facility] 5 5 [facility] T OFF[facility] [id number] DON LUCIANX BUX ANJ OUTPATIEN 5 5 T VISIT 10 MINUTES [facility] T OFFICE [id number] [facility] 5 5 [facility] T V[facility]IT INC 10 MINUTES OFFICE [id number] DON LUCIANX BUX ANJ OUTPATIEN 5 5 T NEW 30 MINUTES OFFICE [id number] CHRISTIE SORIANO TRA OUTPATIEN 4 4 T NEW 45 MINUTES
--- OUTSIDE RECORDS SUMMARY | 2016-05-02 11:48 | External Medical Summary Rpt ---
Author Author , Organization [employer] Address Unknown Phone Unavailable Care Team Providers Care Spanish Medical Interpreter Name Role Phone MIGUELJED CONWAY, Unavailable Unavailable MIGUEL FARIAS MD, PSC, Unavailable Unavailable IVELISSE FARIAS MD, PSC BEJIMBO WEN Unavailable Unavailable ZHEN ARITA ALL, ARITA ALL Unavailable Unavailable BUX ANJ, BUX ANJ Unavailable Unavailable DUEBER SUSANNE, DUEBER Unavailable Unavailable SUSANNE DUFF, DUFF Unavailable Unavailable DUFF JUAN DAVID, DUFF JUAN DAVID Unavailable Unavailable [facility], [facility] Unavailable Unavailable INC, [facility] SWEET BERTO, SWEET BERTO Unavailable Unavailable SWEET BERTO, SWEET BERTO Unavailable Unavailable [facility], Unavailable Unavailable [facility] SORIANO TRA, SORIANO TRA Unavailable Unavailable SORIANO TRA, SORIANO TRA Unavailable Unavailable [facility] Unavailable [...] JUAN DAVID [facility] Unavailable Unavailable [facility], [facility], Unavailable Unavailable [facility] Unavailable [facility] Purpose Continuity of Care Document - 07-03-2013 through 2016 Problems Code Diagnosis DOS Provider Status [id number] SPINAL 03-20-2016 [facility] STENOSIS [facility] LUMBAR INC REGION B391 CHRONIC 02-22-2016 [facility] HISTOPLASMO INC SIS CAPSULATI Z5181 ENCOUNTER 02-22-2016 [facility] FOR [facility] THERAPEUTIC INC DRUG LEVEL MONITORING L821 OTHER 02-18-2016 [facility] KERATOSIS [id number] SPONDYLOSIS 02-01-2016 IVELISSE FARIAS, W/O MD, PSC MYELOPATH/R ADICULOPATH Y LUMB RGN 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 FARIAS RAL DISC , PSC D/O W/RADICULOP ATHY LUMB RGN M5416 RADICULOPAT 02-01-2016 [facility] HY LUMBAR [facility] REGION INC B392 PULMONARY 01-24-2016 [facility] CAPSULATI UNSPECIFIED J441 CHRONIC 01-24-2016 [facility] PULMONARY [facility] DZ W/EXACERBAT ION R600 LOCALIZED 01-03-2016 [facility] EDEMA [facility] INC M5136 OTH 12-28-2015 [facility] INTERVERTEB [facility] RAL DISC INC DEGEN LUMBAR REGION [id number] OTHER LONG 12-17-2015 [facility]M [facility] CURRENT [facility] DRUG THERAPY G894 CHRONIC 12-14-2015 [facility] SYNDROME J431 PANLOBULAR 12-14-2015 [facility] EMPHYSEMA [facility] M545 LOW BACK 12-14-2015 [facility] Z720 TOBACCO USE 12-14-2015 [facility] M5406 PANNICULITI 11-30-2015 [facility] S AFFCT [facility] REGIONS NCK INC BACK LUMB REGION J189 PNEUMONIA 11-23-2015 [facility] ORGANISM HOSPI J984 OTHER 11-23-2015 [facility] OF LUNG HOSPI R918 OTHER 11-23-2015 [place] NONSPECIFIC [facility] ABNORMAL HOSPI FINDING OF LUNG FIELD Z942 LUNG 11-23-2015 [facility] TRANSPLANT [facility] STATUS [facility] R911 SOLITARY 10-21-2015 [facility] PULMONARY [facility] NODULE INC G8929 OTHER 10-06-2015 [facility] CHRON[facility] PAIN [facility] J439 EMPHYSEMA 10-06-2015 [facility] UNSPECIFIED SERV [facility] M549 DORSALGIA 10-06-2015 [facility] UNSPECIF[facility] T48263 OTHER SPEC 07-06-2015 [facility] [employer] NEOPLASM SKIN OTHER PART TRUNK D485 NEOPLASM OF 06-24-2015 [facility] BEHAVIOR OF GROUP SKIN Z7689 PERSONS 05-21-2015 LAB RASHIDA ENCOUNTER [facility] [employer] OT CIRCUMSTANC ES I208 OTHER FORMS 03-30-2015 [facility] OF ANGINA [facility] PECTORIS INC I209 ANGINA 03-30-2015 [facility] PECTORIS PHYSICIANS UNSPECIFIED GROUP J449 CHRONIC 03-30-2015 [facility] OBSTRUCTIVE [facility] PULMONARY INC DISEASE UNS R079 CHEST PAIN 03-30-2015 [facility] UNSPECIFIED [facility] INC R9431 ABNORMAL 03-30-2015 [facility] ELECTROCARD [facility] IOGRAM INC R9439 ABNORMAL 03-30-2015 [facility] RESULT OT PHYSICIANS CARDIOVASCU GROUP LR FUNCTION STUDY R0602 SHORTNESS 03-22-2015 [facility] OF BREATH [facility] INC R0600 DYSPNEA 02-23-2015 [facility] UNSPECIFIED [facility] INC J209 ACUTE 02-20-2015 [facility]IS [facility] UNSPECIFIED Z8249 FAMILY HX 02-20-2015 [facility] ISCHEMIC [facility] HRT DZ OTH DZ CIRC SYSTEM [id number] STRAIN 12-11-2014 [facility]CLE [facility] FASCIA & TENDON LOW BACK INITIAL 39217 OTHER 10-29-2014 [facility] PNEUMOTHORA SERV X [facility]OUNDATION 486 PNEUMONIA, 10-28-2014 [facility] UNSPECIFIED 5121 IATROGENIC 10-28-2014 [facility] X 5130 ABSCESS OF 10-28-2014 [place] LUNG [facility] HOSPI 515 POSTINFLAMM 10-28-2014 [place] ATORY [facility] PULMONARY HOSPI FIBROSIS 47306 OTHER 10-28-2014 [place] DISEASES [facility] LUNG NOT HOSPI ELSEWHERE CLASSIFIED 39518 OTHER 10-28-2014 [facility] NONSPECIFIC SERV ABNORMAL FOUNDATION FINDING OF LUN[place] FIELD V1083 PERSONAL 10-28-2014 [facility] OTHER MALIGNANT NEOPLASM SKIN V5882 ENCOUNTER 10-28-2014 [facility] FIT[facility]&ADJ SERV [facility] NON-VASCULA R CATHETER NEC 496 CHRONIC 10-27-2014 [facility]WAY [facility] OBSTRUCTION NEC 7226 DEGENERATIO 10-27-2014 [facility] N [facility] INTERVERTEB RAL DISC SITE UNSPEC 92790 ENTHESOPATH 10-27-2014 [facility] Y OF [facility] UNSPECIFIED SITE 7866 SWELLING, 10-27-2014 [facility] MASS, OR [facility]ATES LUMP IN CHEST 4928 OTHER 09-25-2014 [facility] 43359 LOSS OF 09-25-[address] [place] [address] [facility] 29931 SOLITARY 09-25-2014 [facility] PULMON[facility] NODULE [facility]OUND[facility] 86796 OBSTRUCTIVE 09-14-2014 [facility] CHRONIC [facility] BRONCHITIS INC WITHOUT EXACERBAT 25296 SHORTNESS 08-31-2014 [facility] 7932 NONSPC ABN 08-31-2014 [facility] FINDMOJGAN [facility] RAD&OTH INC EXAM OTH INTRTHOR ORGN 7205 SACROILIITI 06-01-2014 DON FARIAS S NOT MD ELSEWHERE CLASSIFIED 32923 DEGEN 06-01-2014 DON FARIAS LUMBAR/LUMB OSACRAL INTERVERTEB RAL DISC 7244 THORACIC/FAVIOLA 06-01-2014 DON FARIAS MBOSACRAL NEURITIS/RA DICULITIS UNSPEC 29165 DISPLCMT 04-13-2014 DON FARIAS LUMBAR INTERVERT DISC [...] 1 59 PH CE AR TA M IL #3 NO 93 PH 8 7. 5- [...] 02 02 60 30 00 RI Ac OR 18 -0 -2 .0 00 TE ti [...] 1 21 PH CE AR TA M IL #3 NO 93 PH 8 7. 5- 32 5 ME 00 12 01 21 6 00 RI Ac TH 78 -1 -1 .0 00 TE ti YL 15 2- 3- 00 01 ve OR 02 20 20 16 AI ED 20 [...] 1 08 PH CE AR TA M IL #3 NO 93 PH 8 7. 5- [...] Procedure DOS Code Location Performer Comment COLLECTIO 20234 [facility] N VENOUS 7 [facility] BLOOD INC INC VENIPUNCT URE COMPREHEN 30542 [facility] SIVE 7 [facility] METABOL[place] [address] FAMILY JOCELINE LESION 1 7 CARE TRUNK/ARM ASSOCIATE /LEG DIAM S 1.1-2.0 CM NJX 57819 IVELISSE DUFF DX/THER 6 MD JARRETT, AGT PVRT PSC FACET JT LMBR/SAC 3+ LEVEL NJX 87047 IVELISSE DUFF DX/THER 6 MD JARRETT, AGT PVRT PSC FACET JT LMBR/SAC 1 LEVEL NJX 39550 IVELISSE DUFF DX/THER 6 MD JARRETT, AGT PVRT PSC FACET JT LMBR/SAC 2ND LEVEL BLOOD 68772 [facility] COUNT 6 [facility] COMPLETE INC INC AUTO&AUTO DIFRNTL WBC COLLECTIO 26111 [facility] N VENOUS 6 [facility] BLOOD INC INC VENIPUNCT URE COMPREHEN 70426 [facility] SIVE 6 [facility] METABOLIC INC INC PANEL COLLECTIO 44518 [facility] N VENOUS 6 [facility] BLOOD INC INC VENIPUNCT URE COMPREHEN 84751 [facility] SIVE 6 [facility] METABOLIC INC INC PANEL BLOOD 99580 [facility] COUNT 6 [facility] COMPLETE INC INC AUTO&[place]X 29158 IVELISSE ANEUDY JUAN DAVID DX/THER 6 MD JARRETT, AGT PVRT PSC FACET JT LMBR/SAC 1 LEVEL NJX 20583 IVELISSE ANEUDY JUAN DAVID DX/THER 6 MD JARRETT, AGT PVRT PSC FACET JT LMBR/SAC 2ND LEVEL NJX 65736 IVELISSE ECHAVARRIAKIM JUAN DAVID DX/THER 6 MD JARRETT, AGT PVRT PSC FACET JT LMBR/SAC 3+ LEVEL CONCENTRA 01145 [facility] TION 6 HEALTHCAR HEALTHCAR INFECTIOU E E S AGENTS [facility] CULTURE 33275 [facility] FUNGI 6 HEALTHCAR HEALTHCAR DEFINITIV E E E ID EACH [facility] ORGANISM YEAST HOMOGENIZ 97726 [facility] ATION 6 HEALTHCAR HEALTHCAR TISSUE E E CULTURE [facility] INJECTION J2250 [facility] 6 HEALTHCAR HEALTHCAR MIDAZOLAM E E HCL PER [facility] 1 MG CULTURE 44881 [facility] FNGI 6 HEALTHCAR HEALTHCAR MOLD/YEAS E E T PRSMPTV [facility] OTH XCPT BLOOD SUSCEPTBI 49747 [facility] LTY STDY 6 HEALTHCAR HEALTHCAR ANTIMICRB E E IAL AGNT [facility] AGAR DILUTJ IADNA NOS 40848 [facility] DIRECT 6 HEALTHCAR HEALTHCAR PROBE TQ E E [facility] ORGANISM SUSCEPTIB 54420 [facility] ILITY 6 HEALTHCAR HEALTHCAR STUDY E E ANTIMICRO [facility] BIAL ENZYME DETCJ SPECIAL 33237 [facility] STAIN 6 HEALTHCAR HEALTHCAR GROUP 1 E E MICROORGA [facility] NISMS I&R BRONCHOSC 79893 [facility] OPY 6 HEALTHCAR HEALTHCAR W/TRANSBR E E ONCHIAL [facility] LUNG BX 1 LOBE CUL BACT 85368 [facility] AEROBIC 6 [facility]ALTHCAR HEALTHCAR ADDL E E METHS [facility] DEFINITIV E EA ISOL INFUSION J7030 [facility] NORMAL 6 HEALTHCAR HEALTHCAR SALINE E E SOLUTION [facility] 1000 CC INJECTION J3010 [facility] FENTANYL 6 HEALTHCAR HEALTHCAR CITRATE E E 0.1 MG [facility] BRNCHSC 96087 [facility] W/BRNCL 6 HEALTHCAR HEALTHCAR ALVEOLAR E E [facility] CYTP 10223 [facility] SLCTV 6 HEALTHCAR HEALTHCAR CELL E E ENHANCEME [facility] NT INTERPJ XCPT C/[place] L[place] [address] [facility] SURG 6 HEALTHCAR HEALTHCAR PATHOLOGY E E [facility] GROSS&LESLIE ROSCOPIC EXAM CULTURE 80685 [facility] TUBERCLE/ 6 HEALTHCAR HEALTHCAR OTH E E ACID-FAST [facility] BACILLI ANY ISOL CUL BACT 04658 [facility] XCPT 6 HEALTHCAR HEALTHCAR URINE E E BLOOD/STO [facility] OL AEROBIC ISOL SMR PRIM 89329 [facility] SRC 6 HEALTHCAR HEALTHCAR FLUORESCE E E NT&/AFS [facility] [place] [address] [facility] SLIDE 6 HEALTHCAR HEALTHCAR SAMPS E E SKN/HR/NL [facility] S FNGI/ECTO PARASIT APPL 07892 [facility] MODALITY 6 [facility] 1/> AREAS INC INC ULTRASOUN D EA [address] THORAX 17148 [facility] W/O 6 [facility] CONTRAST INC INC MATERIAL APPL 33222 [facility] MODALITY 6 [facility] 1/> AREAS INC INC ELEC STIMJ UNATTENDE D APPLICATI 22172 [facility] ON 6 [facility] MODALITY INC INC 1/> AREAS HOT/COLD PACKS APPLICATI 33229 [facility] ON 6 [facility] MODALITY INC INC 1/> AREAS HOT/COLD PACKS APPL 90568 [facility] MODALITY 6 [facility] 1/> AREAS INC INC ELEC STIMJ UNATTENDE D APPL 75327 [facility] MODALITY 6 [facility] 1/> AREAS INC INC ULTRASOUN D EA 15 MIN APPL 38816 [facility] MODALITY 6 [facility] 1/> AREAS INC INC ULTRASOUN D EA 15 MIN APPLICATI 15202 [facility] ON 6 [facility] MODALITY INC INC 1/> AREAS HOT/COLD PACKS APPL 08314 [facility] MODALITY 6 [facility] 1/> AREAS INC INC ELEC STIMJ UNATTENDE D APPL 19550 [facility] RB[facility] MODALITY 6 MEM H[facility]OS[facility] 1/> AREAS INC INC ELEC STIMJ UNATTENDE D THERAPEUT 92420 [facility] IC PX 1/> 6 [facility] AREAS INC INC EACH 15 MIN EXERCISES APPL 21519 [facility] MODALITY 6 MEM H[facility] 1/> AREAS INC INC ULTRASOUN D EA 15 MIN APPLICATI 78795 [facility] ON 6 MEM [facility]OS[facility] MODALITY INC INC 1/> AREAS HOT/COLD PACKS APPLICATI 64296 [facility] ON 6 [facility] MODALITY INC INC 1/> AREAS HOT/COLD PACKS APPL 10098 [facility] MODALITY 6 [facility] 1/> AREAS INC INC ULTRASOUN D EA 15 MIN APPL 55488 [facility] MODALITY 6 MEM [facility] 1/> AREAS INC INC ELEC STIMJ UNATTENDE D APPL 62654 [facility] MODALITY 6 MEM [facility] 1/> AREAS INC INC ELEC STIMJ UNATTENDE D APPL 45032 [facility] MODALITY 6 [facility] 1/> AREAS INC INC ULTRASOUN D EA 15 MIN APPLICATI 91782 [facility] ON 6 [facility]OS[facility] MODALITY INC INC 1/> AREAS HOT/COLD PACKS APPLICATI 14956 [facility] ON 6 [facility] MODALITY INC INC 1/> AREAS HOT/COLD PACKS APPL 60932 [facility] MODALITY 6 [facility] 1/> AREAS INC INC ULTRASOUN D EA 15 MIN APPL 94012 [facility] MODALITY 6 MEM H[facility]OS[facility] 1/> AREAS INC INC ELEC STIMJ UNATTENDE D THERAPEUT 82458 [facility] RBOOKE IC PX 1/> 6 [facility] AREAS INC INC EACH 15 MIN EXERCISES APPL 54390 [facility] MODALITY 6 MEM H[facility]OS[facility] 1/> AREAS INC INC ULTRASOUN D EA 15 MIN APPLICATI 68349 [facility] ON 6 [facility] MODALITY INC INC 1/> AREAS HOT/COLD PACKS APPL 48602 [facility] MODALITY 6 [facility] 1/> AREAS INC INC ELEC STIMJ UNATTENDE D PHYSICAL 53305 [facility] THERAPY 6 [facility] [place] [address] [facility], PICKLESIM SURG 6 LLC ER [facility] PATHOLOGY GROSS&LESLIE ROSCOPIC EXAM CREATININ 34020 LAB RASHIDA LAB RASHIDA E OTHER 6 [...] HOSP [facility] INC INC CATH PLMT 35953 [facility] Valerio HRT & 6 MEM HOSP [...] MEM HOS[facility] INC INC NON-INVAS 30625 [facility] FARIDA 6 [facility] H[facility] PHYSIOLOG INC INC IC STUDY EXTREMITY 3 LEVLS MYOCARDIA 79536 [facility] Valerio SPECT 6 [facility] MULTIPLE INC INC STUDIES INJECTION J2785 [facility] 6 [facility] REGADENOS INC INC ON 0.1 MG CV STRS 90234 [facility] TST 6 [facility] XERS&/OR INC INC RX CONT ECG TRCG ONLY TECHNETIU A9500 [facility] Kothari TC-99M 6 [facility] SESTAMIBI INC INC DX PER STUDY DOSE ECHO 18448 [facility] TTHRC R-T 6 [facility] 2D INC INC W/WOM-MOD E COMPL SPEC&COLR D ECHO 32572 RHIANNA RIVERA TRANSTHOR 6 MEDICAL MARTINEZ MAN C R-T 2D SERV W/WO FOUNDATIO M-MODE N REC F-UP/LMTD ECG 11759 CARDIOVAS KORTNEY ROUTINE 6 CULAR MAT ECG CONSULTAN W/LEAST TS O 12 LDS I&R ONLY ECG 04651 [facility] ROUTINE 6 [facility] ECG INC INC W/LEAST 12 LDS TRCG ONLY W/O I&R BLOOD 81536 FAMILY FAMILY COUNT 6 CARE CARE COMPLETE ASSOCIATE ASSOCIATE AUTO&AUTO S S DIFRNTL WBC CT THORAX 08865 [facility] W/O 5 [facility] CONTRAST INC INC MATERIAL COLLECTIO 74290 [facility] N VENOUS 5 [facility] HOSP BLOOD INC INC VENIPUNCT URE RADIOLOGI 76071 [facility] 5 Y Y [facility] [place] FRONTAL RADIOLOGI 36871 [facility] 5 Y Y [facility] [place] FRONTAL INJECTION J1170 [facility] 5 Y Y [facility] YANCI UP TO 4 MG PATH 53967 [facility] CRITICAL ACCESS HOSPITALBER CONSLTJ 5 Y OF SUSANNE SURG [facility] EX[facility] ADDL SITE SPECIAL 18594 [facility] DUEBER STAIN 5 Y OF SUSANNE GROUP 1 [facility] NISMS I&R SPCL STN 20496 [facility] DUEBER 2 I&R 5 Y OF SUSANNE EXCPT [facility] ENZYME/IM CYT PATH 49694 [facility] DUEBER CONSLTJ 5 Y OF SUSANNE SURG [facility] EXAM INITIAL SITE PROTHROMB 14566 [facility] IN TIME 5 Y Y HOSPITAL HOSPITAL CULTURE 61402 [facility] UNIVERSIT FNGI 5 Y Y MOLD/YEAS HOSPITAL HOSPITAL T PRSMPTV OTH XCPT BLOOD PERQ 10726 [place] STRAIN DRAINAGE 5 MEDICAL JUAN DAVID PLEURA SERV INSERT FOUNDATIO CATH N W/IMAGING GUIDE C1769 [facility] WIRE 5 Y Y HOSPITAL HOSPITAL BASIC 41169 [facility] METABOLIC 5 Y Y PANEL HOSPITAL HOSPITAL CALCIUM TOTAL THROMBOPL 97303 [facility] ASTIN 5 Y Y TIME HOSPITAL HOSPITAL PARTIAL PLASMA/WH OLE BLOOD CULTURE 35662 [facility] TUBERCLE/ 5 Y Y OTH HOSPITAL HOSPITAL ACID-FAST BACILLI ANY ISOL CULTURE 19962 [facility] BACTERIAL 5 Y Y ANY HOSPITAL HOSPITAL SOURCE ANAEROBIC ISO&ID CUL BACT 30896 [facility] XCPT 5 Y Y URINE HOSPITAL HOSPITAL BLOOD/STO OL AEROBIC ISOL SMR PRIM 08283 [facility] SRC 5 Y Y FLUORESCE [facility] NT&/AFS [place] T[place] [address] [facility] SLIDE 5 Y Y [facility] SKN/HR/NL S FNGI/ECTO PARASIT RADIOLOGI 03985 [facility] C 5 Y Y [facility] FRONTAL CATHETER C1729 [facility] DRAINAGE [address] [facility] IMHISTOCH 91179 [facility] EM/CYTCHM 5 Y OF Aug [facility] [place] [address] [facility] SURG 5 Y OF AUG PATHOLOGY [facility] GROSS&LESLIE ROSCOPIC EXAM BLOOD 28564 [facility] COUNT 5 Y Y COMPLETE HOSPITAL HOSPITAL AUTOMATED SMR PRIM 75416 [facility] SRC 5 Y Y GRAM/GIEM [facility] SA STAIN BCT FUNGI/JEFF L HOMOGENIZ 29092 [facility] [address] [facility] HOSPITAL CULTURE BIOPSY 64199 [facility] LUNG/MEDI 5 Y Y [facility] PERCUTANE OUS NEEDLE INJECTION J2250 [facility] 5 Y Y MIDAZOLAM [facility] [place] [address] [place] [address] [facility] GUIDANCE 5 Y Y NEEDLE [facility] PLACEMENT INJECTION J3010 [facility] FENTANYL 5 Y Y CITRATE [facility] 0.1 MG INFUSION J7030 [facility] NORMAL 5 Y Y SALINE [facility] SOLUTION 1000 [place] [address] RHIANNA MONTEROHA PAR IMAGING [address] SERV ATTENUATI FOUNDATIO ON SKULL N BASE MID-THIGH FLUORODEO A9552 [facility] XYGLUCOSE 5 Y Y F-18 FDG [facility] DX UP TO 45 MCI COLLECTIO 91105 [facility] N VENOUS 5 [facility]OS[facility] BLOOD INC INC VENIPUNCT URE COMPREHEN 04818 [facility] SIVE 5 MEM [facility] [place] [address] [facility] THYROID 5 MEM HOS[facility] MEM [facility]OS[facility] STIMULATI INC INC NG HORMONE TSH GAS 42832 [facility] DILUT/WAS 5 [facility] HOUT LUNG INC INC VOL W/WO DISTRIB VENT&[place] [address] [facility] DIFFUSING 5 [facility] H[facility] CAPACITY INC INC NONINVASI 89145 [facility] VE 5 [facility] EAR/PULSE INC INC OXIMETRY MULTIPLE DETER ALPHA-1-A 95925 [facility] NTITRYPSI 5 [facility] N INC INC PHENOTYPE BLOOD 07036 [facility] COUNT 5 [facility]OS[facility] COMPLETE INC INC AUTO&AUTO DIFRNTL WBC BRNCDILAT 18756 [facility] RSPSE 5 [facility] SPMTRY INC INC PRE&POST- BRNCDILAT ADMN LOCM Q9967 [facility] [phone] 5 [facility] MG/ML INC INC IODINE CONCENTRA TION PER ML CT THORAX 88546 [place] BE[facility] 5 MEDICAL ZHEN W/CONTRAS IMAGING T ASS MATERIAL COLLECTIO 33695 [facility] N VENOUS 5 [facility] [place] [address] [facility] UREA 5 [facility] NITROGEN INC INC QUANTITAT FARIDA CREATININ 10644 [facility] E BLOOD 5 MEM HOS[facility] INC INC RADIOLOGI 93466 [place] ARITA ALL C EXAM 5 MEDICAL CHEST 2 IMAGING VIEWS [place] FRONT[place] [address] DON EPSTEINX BUX ANJ JOINT 5 ARTHRGRPH Y&/ANES/S TEROID W/ANUJ OPHTH 61586 [facility] MEDICAL 4 XM&EVAL COMPRE NEW PT 1/> VST Encounters Encounter Start End Date Code Location Performer Type Date [facility] - 7 7 [facility] OUTPATIEN INC T OFFICE 19345 [facility]IEN 7 7 [facility] T VISIT INC 10 MINUTES [facility] - 7 7 [facility] OUTPATIEN INC [facility] - 6 6 [facility] OUTPATIEN INC T OFFICE 53508 IVELISSE AMADO OUTPATIEN 6 6 MD JARRETT, T VISIT PSC 15 MINUTES OFFICE 05823 [facility] OUTPATIEN 6 6 [facility] T VISIT INC 10 MINUTES OFFICE 23653 RHIANNA FOX OUTPATIEN 6 6 MEDICAL T VISIT SERV 25 FOUNDATIO MINUTES [facility]OSP[facility] - 6 6 [facility] OUTPATIEN INC [facility] T OFFICE 41772 IVELISSE AMADO OUTPATIJAIR 6 6 MD JARRETT, T VISIT PSC 15 MINUTES OFFICE 96932 [facility]ES [facility] T OFFICE 07637 RHIANNA FOX OUTPATIEN 6 6 MEDICAL JAM T VISIT SERV 25 FOUNDATIO MINUTES N OFFICE 21503 FAMILY JOCELINE OUTPATIEN 6 6 CARE R H T VISIT ASSOCIATE 15 S MINUTES [facility] OFFICE 32194 [facility] 10 [facility]ES [facility] T OFFICE 63845 IVELISSE AMADO JUAN DAVID OUTPATIEN 6 6 MD JARRETT, T VISIT PSC [address] [facility] T OFFICE 41720 FAMILY JOCELINE OUTPATIEN 6 6 CARE R H T VISIT ASSOCIATE [address] [facility] - [facility] T OFFICE 90026 [place] OUTPATIEN 6 6 MEDICAL JAM T VISIT SERV 15 FOUNDATIO MINUTES [facility] - 6 6 [facility] T OFFICE 41780 IVELISSE WEISSJ OUTPATIEN 6 6 MD JARRETT, T VISIT PSC 10 MINUTES OFFICE 62048 FAMILY JOCELINE OUTPATIEN 6 6 CARE R H T VISIT ASSOCIATE 15 S MINUTES OFFICE 84302 [facility] NARENDRA OUTPATIEN 6 6 PHYSICIAN CAM T VISIT S GROUP 15 MINUTES OFFICE 68081 FAMILY JOCELINE OUTPATIEN 6 6 CARE R H T VISIT ASSOCIATE 25 S MINUTES OFFICE 85363 FAMILY JOCELINE OUTPATIEN 6 6 CARE R H T VISIT ASSOCIATE 15 S MINUTES OFFICE 96967 FAMILY JOCELINE OUTPATIEN 6 6 CARE R H T VISIT ASSOCIATE 15 S MINUTES [facility] T OFFICE 16104 FAMILY JOCELINE OUTPATIEN 6 6 CARE R H T VISIT ASSOCIATE 15 S [facility] T OFF[facility] 93558 CARDIOVAS KORTNEY OUTPATIEN 6 6 CULAR MAT [facility] CAMDEN 60 CONSULTAN MINUTES [facility] - [facility] 6 [facility] T OFFICE 14667 FAMILY JOCELINE OUTPATIEN 6 6 CARE R H T VISIT ASSOCIATE 15 S [facility] - 5 5 [facility] T OFFICE 42697 FAMILY JOCELINE OUTPATIEN 5 5 CARE R H T VISIT ASSOCIATE 15 S [facility] - 5 5 [facility] UN[facility] - 5 5 Y [facility] T OFFICE 43662 FAMILY JOCELINE OUTPATIEN 5 5 CARE R H T VISIT ASSOCIATE 15 S [facility] - 5 5 Y [facility] 5 [facility] 5 [facility] T OFF[facility] 36708 DON LUCIANX BUX ANJ OUTPATIEN 5 [address] [facility] T OFFICE 86260 [facility] 5 5 [facility] 10 MINUTES OFFICE 67254 DON LUCIANX BUX ANJ OUTPATIEN 5 5 T NEW 30 MINUTES OFFICE 10974 CHRISTIE SORIANO TRA OUTPATIEN 4 4 T NEW 45 MINUTES
--- OUTSIDE RECORDS SUMMARY | 2016-05-02 11:48 | External Medical Summary Rpt ---
Demographics Preferred Language Amharic Marital Status Unknown Mu-Ism Affiliation Unknown Race Unknown Ethnic Group Unknown Author Author , Organization [facility] Address Unknown Phone Unavailable Purpose Continuity of Care Document - through 2016 Immunization No patient found.
[2016-05-02 11:51] VITALS: BP 138/91; BP 169/78
--- NOTE | 2016-05-02 12:08 | Procedure Note ---
Procedure detail Date of procedure: 05/02/16 Anesthesiologist: Erick Butts CRNA Complications: None Pre-procedure diagnosis: Facet arthropathy, lumbar spondylosis Post-procedure diagnosis: Same Indications for procedure: Pleasant 55-year-old male that we are treating in our pain clinic for low back pain. Patient has facet arthropathy and lumbar spondylosis. Patient status post 2 rounds medial branch blocks and a right-sided RFA. Patient is reporting extreme relief up to 90 percent on the RIGHT side. We will perform the left- sided RFA today. Procedure detail: The procedure was explained to the patient in detail. Consent form was signed. Patient was taken back to the procedure room, where noninvasive monitors were placed. This included noninvasive blood pressure cuff and pulse oximeter. The patient was placed prone on the C-arm table. The area over the lumbar spine was cleansed using chlorhexidine as cleansing solution. Using fluoroscopy guidance, markers were placed over the pedicle at the LEFT L3-4, L4-5, L5-S1. 1% Lidocaine was used to anesthetize the skin with a 25-gauge needle at these markers. Using fluoroscopy guidance the radiofrequency probe was used to access the superior margin of the pedicle at LEFT L3-4, L4-L5, L5-S1. After negative sensory and motor stimulation, 2 mls of 0.25% Marcaine and 10 mg of Depo-Medrol were injected into each needle. We then proceeded with radial frequency ablation at all 3 levels at 80 degrees Celsius 60 seconds. After the lesion was formed the needles were withdrawn. Band-Aids were applied. The patient tolerated the procedure without difficulty. There were no complications Plan and disposition: Patient was reevaluated 10 minutes post procedure. He reports 90 percent improvement terms of his left-sided lumbar back pain. He'll continue to follow up with us in pain clinic for further evaluation. at 1201
[2016-05-02 12:09] VITALS: BP 145/84
== END 2016-05-02 12:09 | disposition home or self-care (01) ==
LOC: PM 11:13
PROC: 3E0T3TZ Introduction of Destructive Agent into Peripheral Nerves and Plexi, Percutaneous Approach (ICD-10-PCS; principal; 2016-05-02)
PROC: BR161ZZ Fluoroscopy of Lumbar Facet Joint(s) using Low Osmolar Contrast (ICD-10-PCS; 2016-05-02)
DX: M46.96 Unspecified inflammatory spondylopathy, lumbar region (principal); M47.896 Other spondylosis, lumbar region
CPT/HCPCS: J1040

== ENCOUNTER → 2016-11-17 | Outpatient (CLI) | payer MEDICAID ==
[~2016-11-17] MED LIST changes: +FAMOTIDINE 20MG20 MG PO; +FOLIC ACID 1MG T1 MG PO; +ONDANSETRON8 M1 PO; +PERCOCET 10 MG1 EACH PO; +PREDNISONE 20MG20 MG PO; +SPIRIVA RE2.5 MCG/Ac IH
--- NOTE | 2016-11-19 16:46 | RADIOLOGY REPORT PS360 ---
CT CHEST W/ CONTRAST COMPARISON: CT scan chest 07/28/2016 HISTORY: Known lung carcinoma post radiation therapy and chemotherapy TECHNIQUE: Multiple axial scans obtained from the thoracic inlet the hemidiaphragms and were performed after injection of IV contrast. Sagittal coronal reformats were evaluated as well. FINDINGS: There is marked hyperexpansion lung mayers consistent with advanced emphysema. There is been marked interval decrease in size of the moderate size right upper lobe mass probably due to to radiation therapy there are somewhat coarse bronchovascular markings in right upper lobe again likely represent post radiation scarring and/or pneumonitis. Advanced centrilobular emphysematous changes are seen in both lung mayers. There is no abnormal superior mediastinal or hilar lymphadenopathy. Cardiac size is normal, there is no pleural fluid. The bony thorax is intact with no obvious evidence of metastatic disease. IMPRESSION: Interval marked decrease in size of the right upper lobe mass with adjacent coarsened bronchovascular markings all findings likely secondary to radiation therapy and probably therapy as well. Advanced centrilobular emphysematous changes are noted.
--- NOTE | 2016-11-19 16:50 | RADIOLOGY REPORT PS360 ---
CT ABD PELVIS W/ CONTRAST COMPARISON: CT scan abdomen pelvis 07/28/2016 HISTORY: Patient has known lung cancer with previous radiation therapy and chemotherapy TECHNIQUE: Multiaxial scans obtained from the hemidiaphragms to the pelvic floor and were performed with IV and oral contrast. Sagittal and coronal reformats were evaluated as well. FINDINGS: The liver spleen stomach pancreas and gallbladder appear grossly normal. There is a stable small node and retrocrural location actually millimeter or 2 smaller than on the previous study. The adrenal glands are normal. The kidneys are normal size and show symmetrical function both appearing normal. The contrast filled small bowel appears grossly normal. The appendix is normal. There is a large amount stool in the cecum and ascending colon. Urinary bladder and prostate appear normal. There is no abnormal periaortic or pelvic lymphadenopathy. The lumbar spine and bony pelvis appear normal. IMPRESSION: Findings as described no definite evidence of intra-abdominal or pelvic ascites disease, stable to slightly smaller retrocrural node as described above
== END ==
LOC: RAD 09:17
DX: C34.11 Malignant neoplasm of upper lobe, right bronchus or lung (principal)
CPT/HCPCS: Q9967

== ENCOUNTER 2016-11-28 08:30 | Outpatient (CLI) | payer MEDICAID ==
[2016-11-28] VITALS (10 sets, daily range): BP systolic 105–128; BP diastolic 70–82
[~2016-11-28] VITALS: Ht 193 cm; Wt 70.8 kg
[2016-11-28 09:01] LABS: HEMOGLOBIN 13.3 g/dL (14.1-18.0)
[2016-11-28 09:12] LABS: BUN 10 mg/dL (7-18)
[2016-11-28 09:17] LABS: GFR (ESTIMATED) 87 ML/MIN (>60)
== END 2016-11-28 12:25 | disposition home or self-care (01) ==
LOC: COP 08:30
PROVIDERS: Internal Medicine
DX: C34.91 Malignant neoplasm of unspecified part of right bronchus or lung (principal); Z51.11 Encounter for antineoplastic chemotherapy
CPT/HCPCS: J9045; J9271; J9305

== ENCOUNTER → 2017-01-01 | Outpatient (CLI) | payer MEDICAID ==
--- NOTE | 2017-01-01 20:59 | RADIOLOGY REPORT PS360 ---
PROCEDURE: 2-D M-mode and color Doppler study INDICATIONS FOR THE TEST: Chest pain COPD+ Heart Murmur+ Tobacco Smoking+ Palpitations Fatigue+ Syncope Edema Hypertension Diabetes Mellitus Rheumatic Fever+ SOB+BROWN Obesity Hyperlipidemia Family History HD+ Additional History dizziness, near syncope, lung cancer, chemo and radiation,TDE due to lung interference PATIENT INFORMATION HEIGHT: 76 WEIGHT: 157 GENDER: Male B/P: 119/74 2-D/M-MODE INTERPRETATION: 2-D MEASUREMENTS OBSERVED VALUES IN CMS Right Ventricular Dimension (RVDd) 2.1 Interventricular Septum (Thickness)(IVsd) 0.9 Left Ventricular Internal Dimensions(LVIDd) 5.1 Left Ventricular Posterior Wall (Thickness)(LVPWd) 1.0 Aortic Root 4.1 Aortic Cusp Separation 2.8 Left Atrial Dimensions (LAD) 2D 1. Technically very difficult study, limited views were obtained. 2. The left atrium is mildly enlarged, left ventricle is normal size, visually estimated ejection fraction approximately 40-45%, there is abnormal septal motion. 3. The right atrium and right ventricle are mildly enlarged, contractility of the right ventricle appears to be normal. 4. The aortic valve is thickened and calcified, leaflet continue to display mobility. 5. The mitral and tricuspid valve leaflets are minimally thickened. 6. The pulmonic valve is not well visualized. 7. No significant pericardial effusion noted. DOPPLER INTERROGATION: Doppler interrogation of the aortic, mitral and tricuspid valvular presence of mild mitral and tricuspid regurgitation. Tricuspid regurgitant jet velocity is insufficient for calculation of the right ventricular systolic pressure. Diastolic parameters were obtained. CONCLUSION: 1. Technically difficult study as described above, Limited views were obtained. 2. Mild biatrial enlargement, normal left ventricular size, visually estimated ejection fraction of 40-45%, there is abnormal septal motion. 3. Mild mitral and tricuspid regurgitation. 4. Mildly enlarged right ventricle with normal contractility. 5. No significant pericardial effusion noted.
== END ==
LOC: RT 10:49
DX: C34.91 Malignant neoplasm of unspecified part of right bronchus or lung (principal); R06.00 Dyspnea, unspecified

== ENCOUNTER → 2017-01-09 | Outpatient (CLI) | payer MEDICAID ==
--- NOTE | 2017-01-09 22:06 | RADIOLOGY REPORT PS360 ---
MRI-BRAIN W/WO Ordering Physician: SAKINA PFEIFFER APRN Patient Age: 56 years: Male HISTORY: LUNG CANCER, WEAKNESS, NAUSEA, DIZZINESS, BLURRED VISION TECHNIQUE: Precontrast Multiplanar FLAIR, T1, T2 weighted images along with axial diffusion/ADC imaging performed on 1.5 T. Siemens, MRI. Postcontrast imaging [id number] ProHance T1-weighted images axial & coronal plane performed COMPARISON :No previous FINDINGS . MR the brain appears satisfactory . No evidence of metastatic disease. No mass lesion. No abnormal areas of enhancement post contrast. Normal anatomy:. The cranial cervical junction is normal. The ventricles and basal cisterns appear normal. The sella appears normal. Posterior fossa is unremarkable. IACs, cranial nerve VII and VIII unremarkable. no subdural nor extra-axial collections... Skull intact calp unremarkable. The paranasal sinuses are clear... Orbits unremarkable. Mastoid air cells unremarkable Uppermost cervical spine included with no lesions. Only Mild spondylosis C3/4 slightly indenting anterior aspect of thecal sac. On the sensitive FLAIR images: note small subtle 4 mm [id number] signal focus in the deep white matter just lateral to the atria right lateral ventricle axial image 15 on FLAIR images. Most likely some minor small vessel deep white matter ischemic/gliotic focus. There is also a subtle small 3 mm area of increased signal at the periphery left temporal lobe adjacent to sulcus coronal image 14. Questionable focus may reflect pulsation artifact or slow flowing vessel at this location. Less likely tiny gliotic focus here for fluid. No enhancement here or elsewhere to raise additional concern IMPRESSION-------- 1. No evidence of metastatic disease. No mass lesion. No abnormal areas of enhancement. 2. Minor observations: ... Nonspecific Small high signal deep white matter focus just lateral to atria right lateral ventricle. Most likely microvascular ischemic focus. Tiny barely evident high signal focus sulcus along lateral left temporal lobe.. Nonspecific ... . Scant degenerative disc changes and spondylosis C3/4
--- NOTE | 2017-01-09 22:06 | RADIOLOGY REPORT PS360 ---
MRI-BRAIN W/WO Ordering Physician: SAKINA PFEIFFER APRN Patient Age: 56 years: Male HISTORY: LUNG CANCER, WEAKNESS, NAUSEA, DIZZINESS, BLURRED VISION TECHNIQUE: Precontrast Multiplanar FLAIR, T1, T2 weighted images along with axial diffusion/ADC imaging performed on 1.5 T. Siemens, MRI. Postcontrast imaging [id number] ProHance T1-weighted images axial & coronal plane performed COMPARISON :No previous FINDINGS . MR the brain appears satisfactory . No evidence of metastatic disease. No mass lesion. No abnormal areas of enhancement post contrast. Normal anatomy:. The cranial cervical junction is normal. The ventricles and basal cisterns appear normal. The sella appears normal. Posterior fossa is unremarkable. IACs, cranial nerve VII and VIII unremarkable. no subdural nor extra-axial collections... Skull intact calp unremarkable. The paranasal sinuses are clear... Orbits unremarkable. Mastoid air cells unremarkable Uppermost cervical spine included with no lesions. Only Mild spondylosis C3/4 slightly indenting anterior aspect of thecal sac. On the sensitive FLAIR images: note small subtle 4 mm [id number] signal focus in the deep white matter just lateral to the atria right lateral ventricle axial image 15 on FLAIR images. Most likely some minor small vessel deep white matter ischemic/gliotic focus. There is also a subtle small 3 mm area of increased signal at the periphery left temporal lobe adjacent to sulcus coronal image 14. Questionable focus may reflect pulsation artifact or slow flowing vessel at this location. Less likely tiny gliotic focus here for fluid. No enhancement here or elsewhere to raise additional concern IMPRESSION-------- 1. No evidence of metastatic disease. No mass lesion. No abnormal areas of enhancement. 2. Minor observations: ... Nonspecific Small high signal deep white matter focus just lateral to atria right lateral ventricle. Most likely microvascular ischemic focus. Tiny barely evident high signal focus sulcus along lateral left temporal lobe.. Nonspecific ... . Scant degenerative disc changes and spondylosis C3/4
== END ==
LOC: RAD 10:42
DX: C34.91 Malignant neoplasm of unspecified part of right bronchus or lung (principal); Z51.11 Encounter for antineoplastic chemotherapy; R11.0 Nausea; R42 Dizziness and giddiness; H53.8 Other visual disturbances; R53.1 Weakness; R25.1 Tremor, unspecified
CPT/HCPCS: A9576

== ENCOUNTER → 2017-01-22 | Outpatient (CLI) | payer MEDICAID ==
[2017-01-22 09:38] LABS: HEMOGLOBIN 13.9 g/dL (14.1-18.0); LYMPH # 3.1 K/mm3 (0.7-4.5)
[2017-01-22 11:18] LABS: BUN 8 mg/dL (7-18)
[2017-01-22 11:23] LABS: GFR (ESTIMATED) 87 ML/MIN (>60)
== END ==
LOC: LAB 09:04
PROVIDERS: Nurse Practitioner
DX: C34.91 Malignant neoplasm of unspecified part of right bronchus or lung (principal); R06.00 Dyspnea, unspecified